=== PATIENT | male | born 1970 | race Caucasian/White ===

== ENCOUNTER → 2016-10-26 | Outpatient (CLI) | payer BC ==
--- NOTE | 2016-10-26 22:21 | MR ---
EXAMINATION TYPE: MR liver wo/w con DATE OF EXAM: 10/26/2016 7:36 AM COMPARISON: Outside [facility] MRI 04/12/2016. HISTORY: 46-year-old male status post low anterior resection for colonic adenocarcinoma, stage 4 Technique: Multiplanar, multisequence images of the abdomen were obtained before and after administra tion of 20 mL intravenous MultiHance gadolinium contrast. FINDINGS: The heart is normal size. Susceptibility artifact at the GE junction suggestive of prior hiatal hernia repair. Small 3.4 cm fat -containing left-sided Bochdalek hernia. Lobulated 2.7 cm hemangioma redemonstrated along the central right hepatic lobe. A number of tiny sub centimeter cysts are again seen throughout the liver. There is some perfusion variation seen along the anterior falciform ligament. Arterial enhancing, peripherally located lesions which follow the blood pool likely represent flash f illing hemangiomas or areas of vascular shunting on series 701 as follows: - 2 cm lobulated lesion segment 5/6 peripheral right liver lobe, image 176. - 2 adjacent lesions measuring up to 1.4 cm inferior right liver lobe, image 181 and 206. - Along the gallbladder fossa, image 316. - Peripheral segment 2 left hepatic lobe image 461. Suspicious hypovascular lesions that show mild T2 hyperintensity and slight rim enhancement on series 701 are as follows: - 7 mm segment 4A/8 image 430 versus 1.6 cm, previously. - 1.2 cm segment 7 image 405 versus 2.5 cm, previously. - 9 mm peripheral segment 5/6 image 217 versus 2.1 cm, previously. - Approximately five additional smaller lesions seen on the outside MRI of 04/12/2016 are no longer a pparent. The bile duct is mildly dilated at 8 mm but shows normal distal tapering and is within normal limits postcholecystectomy status. Multiple bilateral renal cysts measuring up to 1.8 cm. There is also a hemorrhagic 1 cm cyst redemons trated within the right midpole. Symmetric uptake and excretion of contrast by both kidneys. The adrenal glands, spleen, and pancreas appear within normal limits. No upper abdominal lymphadenopathy or ascites fluid. There is moderate stool burden with mild scatte red colonic diverticulosis. There is minimal residual enhancement of the right lateral L4 lesion. The anterior L2 lesion shows n o significant enhancement. IMPRESSION: 1. The hepatic metastases show interval treatment response. The largest now measures 1.2 cm in segmen t 7 versus 2.5 cm, previously. The other 2 hypovascular lesions measure 9 mm and 7 mm (previously 2.1 cm and 1.6 cm, respectively). Other metastatic deposits are no longer seen. 2. The known right lateral L4 vertebral body lesion shows minimal residual enhancement. The anterior L2 lesion no longer shows any significant enhancement.
== END | disposition home or self-care (01) ==
LOC: RADMRIMAIN 06:48
PROVIDERS: ATTEND Family Medicine
DX: C18.9 Malignant neoplasm of colon, unspecified (principal); C78.7 Secondary malignant neoplasm of liver and intrahepatic bile duct; M89.9 Disorder of bone, unspecified
CPT/HCPCS: 74183; A9577

== ENCOUNTER → 2016-12-17 | Outpatient (CLI) | payer BC ==
--- NOTE | 2016-12-19 11:18 | PE ---
Nuclear medicine PET/CT HISTORY: Metastatic colon cancer, C 26.0 Patient received 14.3 mCi F-18 FDG intravenously. Delayed scanning performed from the skull base to t he mid thighs. Localization and attenuation correction CT scan was performed. Correlation to prior nuclear medicine PET/CT 05/28/2016, MR liver 10/26/2016 Neck and chest: There is no evident adenopathy. No suspicious hypermetabolic uptake. Emphysematous ch sabrina present within the lungs, no evident lung mass. Abdomen pelvis: No retroperitoneal adenopathy. No evident liver mass on this noncontrast exam. Calcif ication present at the lower pole of the left kidney measures approximately 8.5 mm and is nonobstruct boyd, calcification at the lower pole of the right kidney measures 4 to 5 mm and is unremarkable, no o bstruction. Postop changes are present in the upper abdomen. Postop change present at the rectosigmoi d junction. Right inguinal hernia contains fat. No evident adenopathy or suspicious hypermetabolic up take. Osseous structures are showing interval sclerotic change to the proximal humerus lesion on the left a s well as the sacrum. L4 lesion on the right shows some sclerosis as does the L2 lesion anteriorly, n o significant hypermetabolic uptake. IMPRESSION: No suspicious hypermetabolic uptake on the current exam.
== END | disposition home or self-care (01) ==
LOC: RADPETMAIN 09:46
PROVIDERS: ATTEND Family Medicine
DX: C26.0 Malignant neoplasm of intestinal tract, part unspecified (principal)
CPT/HCPCS: 78815; A9552

== ENCOUNTER 2017-01-04 06:15 | Day surgery (SDC) | payer BC ==
[2017-01-02 10:57] VITALS: BMI 28.2
[~2017-01-04 06:15] MED LIST: DEXAMETHASONE SOD PHOSPHATE 10 MG/ML 1 ML VIAL IV ONE; HEPARIN SODIUM,PORCINE 5,000 UNIT/ML 1 ML VIAL SQ ONE; HYDROmorphone 1 MG/ML 1 ML SYRINGE IVP PRN; MIDAZOLAM 2 MG/2 ML VIAL IV PRN; ONDANSETRON 4 MG/2 ML VIAL IVP ONE; SCOPOLAMINE 1.5MG/72HR PATCH TRANSDERM ONE; ceFAZolin 2 GM in SODIUM CHLORIDE 0.9% 100 ML IVPB ONE
[2017-01-04] MEDS: LACTATED RINGERS 1,000 ML IV SCH ×2 (06:49→06:50)
[2017-01-04] MEDS ORDERED: LIDOCAINE 1% 20 ML VIAL (10MG/ML) FOR IV START INTRADERMA ONE ×2 (06:50)
[2017-01-04 07:13] LABS: Glucose,Whole Blood 105 mg/dL (75-99)
--- NOTE | 2017-01-04 07:57 | P.GSHP ---
History of Present Illness H&P Date: 01/04/17 Chief Complaint: Right inguinal hernia This a 46-year-old male who presents today for laparoscopic robotic system repair of right inguinal hernia. Patient has had a right inguinal hernia for several months. The hernia has increased in size. Past Medical History Past Medical History: Cancer, GI Bleed Additional Past Medical History / Comment(s): Hx. kidney stones, colon cancer History of Any Multi-Drug Resistant Organisms: None Reported Past Surgical History: Bowel Resection, Cholecystectomy, Tonsillectomy Additional Past Surgical History / Comment(s): 03/03/16 colonoscopy, 03/04/16 low anterior resection and laparoscopic liver biopsy, Other surgical hx: hiatal hernia repair, lithotripsy R renal calculus, colonoscopy in past/EGD. PORT A CATH 04/01/16 Past Anesthesia/Blood Transfusion Reactions: No Reported Reaction Smoking Status: Former smoker - Past Family History Father Family Medical History: No Reported History Additional Family Medical History / Comment(s): Father is healthy and in his 70' s. Mother Family Medical History: Hypertension, Renal Disease Additional Family Medical History / Comment(s): Mother has had kidney stones. She is in her 70's. Medications and Allergies Home Medications Medication Instructions Recorded Confirmed Type Aspirin EC [Ecotrin Low Dose] 81 mg PO DAILY 01/02/17 01/04/17 History Allergies Allergy/AdvReac Type Severity Reaction Status Date / Time No Known Allergies Allergy Verified 01/04/17 06:27 Surgical - Exam Vital Signs Temp Pulse Resp BP Pulse Ox 98.7 F 88 16 111/75 95 01/04/17 06:20 01/04/17 06:20 01/04/17 06:20 01/04/17 06:20 01/04/17 06:20 - General well developed, no distress - Eyes PERRL - ENT normal pinna - Neck no masses - Respiratory normal expansion - Cardiovascular Rhythm: regular - Abdomen Abdomen: soft, non tender Hernia: inguinal (Reducible right inguinal hernia) Results - Labs Abnormal Lab Results - Last 24 Hours (Table) 01/04/17 Range/Units 06:36 POC Glucose (mg/dL) 105 H (75-99) mg/dL Assessment and Plan Plan: Right inguinal hernia. We'll perform laparoscopic robotic assistance repair.
[2017-01-04] MEDS ORDERED: fentaNYL (PF) 50 MCG/ML 2 ML AMP ONE (08:00)
[2017-01-04] MEDS ORDERED: KETOROLAC 30 MG/ML 1 ML VIAL ONE (08:00)
[2017-01-04] MEDS ORDERED: ESMOLOL 100 MG/10 ML VIAL ONE (08:00)
[2017-01-04] MEDS ORDERED: LIDOCAINE 1% INJ 10MG/ML (20 ML MDV) ONE (08:00)
[2017-01-04] MEDS ORDERED: MIDAZOLAM 2 MG/2 ML VIAL ONE (08:00)
[2017-01-04] MEDS ORDERED: SUCCINYLCHOLINE CHLORIDE 100 MG/5 ML SYR IV ONE (08:00)
[2017-01-04] MEDS ORDERED: PROPOFOL 10 MG/ML 20 ML VIAL IV ONE (08:00)
[2017-01-04] MEDS ORDERED: NEOSTIGMINE 1 MG/ML 10 ML VIAL ONE (08:00)
[2017-01-04] MEDS ORDERED: GLYCOPYRROLATE 0.2 MG/ML 2 ML VIAL ONE (08:00)
[2017-01-04] MEDS ORDERED: ROCURONIUM BROMIDE 10 MG/ML 10 ML VIAL IV ONE (08:00)
[2017-01-04] MEDS ORDERED: LIDOCAINE 1%-EPI 1:100,000 20 ML VIAL SQ ONE (08:38)
--- NOTE | 2017-01-04 09:17 | P.OP ---
Date of Procedure: 01/04/17 Preoperative Diagnosis: Right renal hernia Postoperative Diagnosis: Bilateral inguinal hernia Procedure(s) Performed: Laparoscopic robotic-assisted repair of bilateral inguinal hernias Implants: Anesthesia: CARLIE Surgeon: Vinicius Leong Estimated Blood Loss (ml): 5 Pathology: none sent Condition: stable Disposition: PACU Indications for Procedure: Operative Findings: Description of Procedure: The patient's placed on the operating table in the supine position. The patient received general anesthesia. The patient's abdomen was prepped and draped in usual sterile fashion. The skin was anesthetized 1% local Xylocaine at the incision sites. Using an 11 blade a skin incision was made at the umbilicus. The fascia was grasped with a Linnette and then the peritoneal cavity was entered with the Veress needle. Position of the Veress needle was confirmed with a positive drop test. After adequate insufflation a 5 mm trocar was placed into the peritoneal cavity. The Laparoscope was placed the peritoneal cavity. And a robotic 8 mm trocar was placed in the right lateral position and then another 8 mm robotic trochars placed in the left lateral position. The original 5 mm trocar was exchanged for a 12 mm trocar. The patient was placed in reverse Trendelenburg and then the patient was docked to the robot. Next the peritoneum over top of the hernia was incised and then using blunt and sharp dissection and electrocautery the hernia sac was dissected free from the floor of the inguinal canal. The hernia sac was completely reduced into the peritoneal cavity. And then using the Pro oracle erp architect mesh the hernia was repaired. The peritoneum was then sutured with 20V lock suture. Next the left inguinal hernia was repaired in identical fashion. The patient was then undocked the robot. The needle was withdrawn from the peritoneal cavity. The umbilical trocar site was closed with 0 Ethibond suture. The skin was closed interrupted 3-0 Monocryl suture. Dermabond dressing was applied. Patient was sent to recovery in stable condition.
[2017-01-04] MEDS ORDERED: LACTATED RINGERS 1,000 ML IV ONE (09:44)
[2017-01-04 09:48] VITALS: TEMP 97.5
[2017-01-04 10:32] VITALS: RESP 16
[2017-01-04 11:21] VITALS: BP 128/84; PULSE 96
== END 2017-01-04 11:58 | disposition home or self-care (01) ==
LOC: OR 06:15
PROVIDERS: ATTEND Surgery
DX: K40.20 Bilateral inguinal hernia, without obstruction or gangrene, not specified as recurrent (principal); Z87.891 Personal history of nicotine dependence
CPT/HCPCS: 49650; C1781; J2250; J1644; J1100; J2710; J0690; J2405; J2001; J3010; J1885; J1170; J0330; J2704

== ENCOUNTER → 2017-07-15 | Outpatient (CLI) | payer BC ==
--- NOTE | 2017-07-17 17:51 | PE ---
EXAMINATION TYPE: PET CT fusion skull to thigh DATE OF EXAM: 07/15/2017 CLINICAL HISTORY: 46-year-old male restaging colorectal cancer. TECHNIQUE: Following the intravenous administration of 13.45 mCi of F-18 FDG, whole body images are performed from the skull base to the midthigh. Images are reviewed on the computer in the coronal, axial, and sagittal planes. Reconstructed rotating images are created on independent workstation and reviewed on the computer. A localization and attenuation correction CT is performed in conjunction with the PET scan. Glucose level: 99 mg/dL CTDI: 4.89 mGy DLP: 550.65 mGy-cm COMPARISON: 04/08/2017. FINDINGS: PET: Focus of increased activity at the right scapular neck, max SUV 7.4 versus 5.4, previously. Additional focus of increased activity within the anterior L2 vertebral body, max SUV 9.7 versus 2.8, previously. Increased uptake right inferior ischial ramus, max SUV 4.3 versus 4.0, previously. These areas of increased FDG uptake are associated with sclerosis on the correlative CT. Abnormal sclerosis within the mid sacrum, left humeral head, and right L4 vertebral body show no disc rete uptake and remain unchanged from prior exam. Small focus of uptake within the right hemipelvis is located along the course of the distal right ure ter compatible with excreted FDG. Otherwise, physiologic FDG uptake within the neck, chest, abdomen, and pelvis. ATTENUATION CORRECTION CT: Follow-up or mucosal retention cyst within the sphenoid sinus. Mastoid air cells are clear. No cervic al lymphadenopathy. Right-sided anterior chest wall injection port with catheter tip at the mid to lower SVC. Heart normal size without pericardial effusion. Aorta normal caliber with conventional arterial vesse l branching anatomy. No thoracic lymphadenopathy. Small fat-containing left-sided Bochdalek hernia. S ome strandy right middle lobe atelectasis. Mild diffuse bronchial wall thickening could represent bro nchitis or asthma. Nonspecific air cyst at the right base. No consolidation or pleural effusion. Left renal calculus measuring 6 mm. Cholecystectomy clips. Suggesting some surgical material below th e GE junction. No dilated small bowel, free fluid, or free air. No mesenteric or retroperitoneal lymp hadenopathy. Normal appendix. Post surgical changes of rectosigmoid resection and reanastomosis. Pelv ic phleboliths. No abnormal collection seen in the pelvis. Tiny periumbilical hernia. Bones: Sclerotic foci as mentioned above. IMPRESSION: 1. Abnormal uptake remains at the right scapular neck, L2 vertebral body, and right inferior ischial ramus. Overall degree of hypermetabolism has increased suggesting disease progression at these limite d sites. 2. Redemonstrated nonmetabolic sclerotic foci in the left humeral head, right L4, and mid sacrum sugg esting sites of previously treated osseous metastatic disease. 3. Prior distal colon resection with rectosigmoid anastomosis. 4. Incidental: 6 mm nonobstructive left renal calculus.
== END | disposition home or self-care (01) ==
LOC: RADPETMAIN 07:51
PROVIDERS: ATTEND Family Medicine
DX: C18.9 Malignant neoplasm of colon, unspecified (principal); N20.0 Calculus of kidney; Z90.49 Acquired absence of other specified parts of digestive tract
CPT/HCPCS: 78815; A9552

== ENCOUNTER → 2017-10-06 | Outpatient (CLI) | payer BC | END | disposition home or self-care (01) | LOC: RADMRIMAIN 14:09 | PROVIDERS: ATTEND Family Medicine | DX: Z53.9 Procedure and treatment not carried out, unspecified reason (principal) ==

== ENCOUNTER → 2017-11-23 | Outpatient (CLI) | payer BC ==
--- NOTE | 2017-11-23 15:51 | NM ---
EXAMINATION TYPE: NM bone scan whole body DATE OF EXAM: 11/23/2017 COMPARISON: PET/CT 07/15/2017 the prior bone scan 04/07/2016 HISTORY: Colon cancer, bone metastasis Delayed whole-body scanning was performed following the injection of 25.1 mCi Tc 99m MDP. Images acq uired 3.75 hours post injection. FINDINGS: In comparison to prior bone scan there is increased uptake at the level of the right and left shoulde r, pubic ramus ischial tuberosity on the right, pubic ramus and medial acetabulum on the left, thorac ic vertebral body approximately T9, lumbar vertebral body approximately L2 and sacrum. Sacral activit y is improved in the interval. Uptake in the left hemipelvis may be contaminant, there is no uptake s een on prior PET/CT at this level. Right pelvic uptake appears more intense than prior PET/CT however , thoracic uptake not definitely seen on prior nuclear medicine PET/CT. Focus of rib uptake also pres ent on the left at approximately the level also not seen on prior PET/CT IMPRESSION: Metastatic disease as described.
== END | disposition home or self-care (01) ==
LOC: RADNMMAIN 10:18
PROVIDERS: ATTEND Internal Medicine Hematology & Oncology
DX: C18.7 Malignant neoplasm of sigmoid colon (principal); C79.51 Secondary malignant neoplasm of bone
CPT/HCPCS: 78306; A9503

== ENCOUNTER → 2017-12-23 | Outpatient (CLI) | payer BC ==
--- NOTE | 2017-12-24 12:30 | PE ---
Nuclear medicine PET/CT HISTORY: Colon carcinoma, subsequent Patient received 12.5 mCi F-18 FDG intravenously in delayed scanning was performed from the skull bas e to the mid thighs. Localization and attenuation correction CT scan was also performed. Correlation to prior nuclear medicine PET/CT 07/15/2017 Neck and chest: Port-A-Cath is present in the right pectoral region via IJ approach the distal tip of the catheter is within the superior vena cava. Coronary artery calcifications are present. There is no mediastinal, axillary, or hilar adenopathy. The lungs show no mass, no suspicious hypermetabolic u ptake, pleural effusion. Abdomen pelvis: There is no suspicious hypermetabolic uptake. Patient is post cholecystectomy. Liver shows no mass. Bilateral renal calculi noted incidentally. No retroperitoneal adenopathy. Umbilical h ernia contains fat. Osseous structures: There is a lytic lesion present within the right scapula towards the glenoid with associated hypermetabolic uptake, SUV is 5.3. T9 vertebral body also shows a focus of increased radi o pharmaceutical uptake, SUV is 8.8 posteriorly on the left, proximal left humerus shows a mild area of uptake laterally measuring 3. SUV. Right ischium shows sclerotic focus associated hypermetabolic u ptake, SUV 5, there is periosteal reaction. Sacral focus seen on previous exam, lumbar lytic foci do not show associated hypermetabolic uptake. IMPRESSION: There is improvement in the intensity of uptake as described within the skeletal system. Findings compatible with positive treatment response.
== END | disposition home or self-care (01) ==
LOC: RADPETMAIN 07:37
PROVIDERS: ATTEND Family Medicine
DX: C18.9 Malignant neoplasm of colon, unspecified (principal)
CPT/HCPCS: 78815; A9552

== ENCOUNTER 2018-05-23 06:37 | Day surgery (SDC) | payer BC ==
[2018-05-22 11:14] VITALS: BMI 26.3
[~2018-05-23 06:37] MED LIST changes: -DEXAMETHASONE SOD PHOSPHATE 10 MG/ML 1 ML VIAL IV ONE; -HEPARIN SODIUM,PORCINE 5,000 UNIT/ML 1 ML VIAL SQ ONE; -HYDROmorphone 1 MG/ML 1 ML SYRINGE IVP PRN; +LACTATED RINGERS 1,000 ML IV SCH; -MIDAZOLAM 2 MG/2 ML VIAL IV PRN; -ONDANSETRON 4 MG/2 ML VIAL IVP ONE; -SCOPOLAMINE 1.5MG/72HR PATCH TRANSDERM ONE; -ceFAZolin 2 GM in SODIUM CHLORIDE 0.9% 100 ML IVPB ONE
[2018-05-23 07:15] VITALS: TEMP 97.8
[2018-05-23] MEDS ORDERED: PROPOFOL 10 MG/ML 20 ML VIAL IV ONE (07:44)
[2018-05-23] MEDS ORDERED: ONDANSETRON 4 MG/2 ML VIAL ONE (07:44)
[2018-05-23] MEDS ORDERED: LIDOCAINE 1% INJ 10MG/ML (20 ML MDV) ONE (07:44)
[2018-05-23] MEDS ORDERED: MIDAZOLAM 2 MG/2 ML VIAL ONE (07:44)
[2018-05-23] MEDS ORDERED: fentaNYL (PF) 50 MCG/ML 2 ML AMP ONE (07:44)
[2018-05-23] MEDS ORDERED: GLUCAGON 1 MG/ML VIAL ONE (07:44)
--- NOTE | 2018-05-23 07:58 | P.GSHP ---
History of Present Illness H&P Date: 05/23/18 Chief Complaint: History of colon cancer Is a 47-year-old male who presents today for colonoscopy. Patient history of colon cancer. Patient states he has had some difficulty asked him bowel movements. He feels he has to push and strain more. He's had a recent PET scan which shows some activity in the rectosigmoid area. Past Medical History Past Medical History: Cancer, GI Bleed Additional Past Medical History / Comment(s): Colon CA / Radiation Hx. kidney stones, History of Any Multi-Drug Resistant Organisms: None Reported Past Surgical History: Bowel Resection, Cholecystectomy Additional Past Surgical History / Comment(s): low anterior resection and laparoscopic liver biopsy, Other surgical hx: hiatal hernia repair, lithotripsy R renal calculus, colonoscopy in past/EGD. Past Anesthesia/Blood Transfusion Reactions: No Reported Reaction Smoking Status: Former smoker - Past Family History Father Family Medical History: No Reported History Additional Family Medical History / Comment(s): Father is healthy and in his 70' s. Mother Family Medical History: Hypertension, Renal Disease Additional Family Medical History / Comment(s): Mother has had kidney stones. She is in her 70's. Medications and Allergies Home Medications Medication Instructions Recorded Confirmed Type Fish Oil/Dha/Epa [Fish Oil 1,200 1 each PO DAILY 05/22/18 05/22/18 History mg Fish Oil] Multivitamins, Thera [Multivitamin 1 tab PO DAILY 05/22/18 05/22/18 History (formulary)] oxyCODONE ER [OxyCONTIN] 20 mg PO Q12HR 05/22/18 05/23/18 History Allergies Allergy/AdvReac Type Severity Reaction Status Date / Time No Known Allergies Allergy Verified 05/22/18 11:07 Surgical - Exam Vital Signs Temp Pulse Resp BP Pulse Ox 97.8 F 79 18 125/81 96 05/23/18 07:12 05/23/18 07:12 05/23/18 07:12 05/23/18 07:12 05/23/18 07:12 - General well developed, no distress - Eyes PERRL - ENT normal pinna - Neck no masses - Respiratory normal expansion - Cardiovascular Rhythm: regular - Abdomen Abdomen: soft, non tender - Rectum Rectum: normal sphincter tone Assessment and Plan Assessment: History of colon cancer, we'll perform colonoscopy.
--- NOTE | 2018-05-23 08:18 | P.OP ---
Date of Procedure: 05/23/18 Preoperative Diagnosis: History of colon cancer Postoperative Diagnosis: Mild diverticulosis No evidence of colon cancer recurrence No evidence of anastomotic stricture Procedure(s) Performed: Colonoscopy Anesthesia: MAC Surgeon: Vinicius Leong Pathology: none sent Condition: stable Disposition: PACU Description of Procedure: The patient's placed on the endoscopy table in the lateral position. He received IV sedation. Digital rectal exam was performed which revealed no abnormalities. The flexible colonoscope was then placed patient anus passed throughout the entire colon. The ileocecal valve was visualized. There was evidence of small bowel prolapsing through the ileocecal valve. The scope was then withdrawn. The cecum, ascending and transverse colon appeared normal. In the descending colon there was a few scattered diverticula. There is no evidence of diverticulitis. The scope was then brought back and the colorectal rectal anastomosis was visualized. There is no evidence of inflammation or scarring at the anastomosis. There is no evidence of any recurrent tumor. Scope was then brought back the rectum and this appeared normal. Scope was withdrawn for patient.
[2018-05-23 08:39] VITALS: BP 120/81; PULSE 77; RESP 18
== END 2018-05-23 09:03 | disposition home or self-care (01) ==
LOC: ORWHC2ENDO 06:37
PROVIDERS: ATTEND Surgery
DX: K57.90 Diverticulosis of intestine, part unspecified, without perforation or abscess without bleeding (principal); Z85.038 Personal history of other malignant neoplasm of large intestine; K57.30 Diverticulosis of large intestine without perforation or abscess without bleeding; Z92.3 Personal history of irradiation; Z87.442 Personal history of urinary calculi; Z98.0 Intestinal bypass and anastomosis status; Z87.891 Personal history of nicotine dependence; Z79.891 Long term (current) use of opiate analgesic
CPT/HCPCS: 45378; J2250; J1610; J2405; J2001; J3010; J2704

== ENCOUNTER 2018-06-14 06:31 | Day surgery (SDC) | payer BC ==
[2018-06-13 13:44] VITALS: BMI 26.3
[~2018-06-14 06:31] MED LIST changes: +HEPARIN SODIUM,PORCINE 5,000 UNIT/ML 1 ML VIAL SQ ONE; -LACTATED RINGERS 1,000 ML IV SCH; +ceFAZolin IN SWFI 2 GM/20 ML SYRINGE IVP ONE
[2018-06-14 07:09] VITALS: TEMP 97.6
[2018-06-14] MEDS ORDERED: LACTATED RINGERS 1,000 ML IV ONE (07:09)
[2018-06-14] MEDS ORDERED: LIDOCAINE 1% 20 ML VIAL (10MG/ML) FOR IV START INTRADERMA ONE (07:09)
[2018-06-14] MEDS ORDERED: DEXAMETHASONE SOD PHOS (MDV) 100 MG/10 ML VIAL IV ONE (07:10)
[2018-06-14] MEDS ORDERED: ONDANSETRON 4 MG/2 ML VIAL IVP ONE (07:10)
[2018-06-14] MEDS ORDERED: MIDAZOLAM 2 MG/2 ML VIAL IV ONE (07:21)
[2018-06-14] MEDS ORDERED: LIDOCAINE 1%-EPI 1:100,000 30 ML VIAL SQ ONE ×2 (07:30)
--- NOTE | 2018-06-14 07:37 | P.GSHP ---
History of Present Illness H&P Date: 06/14/18 Chief Complaint: Port-A-Cath infection This is a 47-year-old male with a history of colon cancer. Patient developed a Port-A-Cath infection. He presents today for removal of Port-A-Cath. Past Medical History Past Medical History: Cancer, GI Bleed Additional Past Medical History / Comment(s): Colon CA / Radiation Hx. kidney stones, History of Any Multi-Drug Resistant Organisms: None Reported Past Surgical History: Bowel Resection, Cholecystectomy Additional Past Surgical History / Comment(s): low anterior resection and laparoscopic liver biopsy, Other surgical hx: hiatal hernia repair, lithotripsy R renal calculus, colonoscopy in past/EGD. Past Anesthesia/Blood Transfusion Reactions: No Reported Reaction Smoking Status: Former smoker - Past Family History Father Family Medical History: No Reported History Additional Family Medical History / Comment(s): Father is healthy and in his 70' s. Mother Family Medical History: Hypertension, Renal Disease Additional Family Medical History / Comment(s): Mother has had kidney stones. She is in her 70's. Medications and Allergies Home Medications Medication Instructions Recorded Confirmed Type Fish Oil/Dha/Epa [Fish Oil 1,200 1 each PO DAILY 05/22/18 06/14/18 History mg Fish Oil] Multivitamins, Thera [Multivitamin 1 tab PO DAILY 05/22/18 06/14/18 History (formulary)] oxyCODONE ER [OxyCONTIN] 20 mg PO Q12HR 05/22/18 06/14/18 History Allergies Allergy/AdvReac Type Severity Reaction Status Date / Time No Known Allergies Allergy Verified 06/14/18 06:52 Surgical - Exam Vital Signs Temp Pulse Resp BP Pulse Ox 97.6 F 68 18 130/70 95 06/14/18 07:07 06/14/18 07:07 06/14/18 07:07 06/14/18 07:07 06/14/18 07:07 - General well developed, well nourished, no distress - Eyes PERRL - ENT normal pinna - Neck no masses - Respiratory Chest wall shows evidence of cellulitis around right subclavian Port-A-Cath normal expansion - Cardiovascular Rhythm: regular - Abdomen Abdomen: soft, non tender Assessment and Plan Assessment: Port-A-Cath infection. We'll perform removal of Port-A-Cath
[2018-06-14] MEDS ORDERED: PROPOFOL 10 MG/ML 20 ML VIAL IV ONE (07:42)
[2018-06-14] MEDS ORDERED: fentaNYL (PF) 50 MCG/ML 2 ML AMP ONE (07:42)
[2018-06-14] MEDS ORDERED: ceFAZolin IN SWFI 2 GM/20 ML SYRINGE IVP ONE (07:59)
--- NOTE | 2018-06-14 08:24 | P.OP ---
Date of Procedure: 06/14/18 Preoperative Diagnosis: Metastatic colon cancer Infected Port-A-Cath Postoperative Diagnosis: Metastatic colon cancer Infected Port-A-Cath Procedure(s) Performed: Removal of Port-A-Cath Anesthesia: MAC Surgeon: Vinicius Leong Pathology: other (Wound culture) Condition: stable Disposition: PACU Description of Procedure: The patient's placed on the endoscopy table in the lateral position. He received IV sedation. His right chest wall was prepped and draped in usual sterile fashion. Skin was anesthetized 1% local Xylocaine. A skin incision was made with a 15 blade and there was purulent fluid encountered. This was cultured. The Port-A-Cath was then bluntly dissected free from the chest wall. The catheter tip was cut and sent to pathology for culture. The wound was inspected for hemostasis. The wound was packed with iodoform gauze. Patient top procedure well and was sent to recovery room stable condition.
[2018-06-14] MEDS ORDERED: oxyCODONE-APAP 10-325MG 1 EACH TAB PO PRN (08:35)
[2018-06-14] MEDS ORDERED: oxyCODONE-APAP 5-325MG 1 EACH TAB PO ONE (08:38)
[2018-06-14 08:40] VITALS: BP 114/70; PULSE 75; RESP 18
== END 2018-06-14 08:51 | disposition home or self-care (01) ==
LOC: OR 06:31
PROVIDERS: ATTEND Surgery
DX: T80.212A Local infection due to central venous catheter, initial encounter (principal); C18.9 Malignant neoplasm of colon, unspecified; Z87.442 Personal history of urinary calculi; Z90.49 Acquired absence of other specified parts of digestive tract; Z87.891 Personal history of nicotine dependence; Z79.891 Long term (current) use of opiate analgesic
CPT/HCPCS: 87070; 87205; 87075; 87077; 87186; 36590; J2250; J1644; J2405; J3010; J1100; J2704; J0690

== ENCOUNTER 2018-06-15 08:10 | Day surgery (SDC) | payer BC ==
[2018-06-14 11:53] VITALS: BMI 26.3
[2018-06-15 08:38] VITALS: RESP 16; TEMP 97.7
[2018-06-15] MEDS ORDERED: LIDOCAINE 1% INJ 10MG/ML (20 ML MDV) ONE (09:15)
[2018-06-15] MEDS ORDERED: LIDOCAINE 1% INJ 10MG/ML (20 ML MDV) SQ ONE (09:27)
[2018-06-15 10:11] VITALS: BP 134/90; PULSE 72
--- NOTE | 2018-07-16 14:27 | IR ---
PICC LINE PLACEMENT: HISTORY: Infection requiring long-term antibiotic therapy PROCEDURE: Ultrasound and fluoroscopic guidance of PICC line placement. COMPLICATIONS: None ANESTHESIA: 1. 1% Lidocaine locally. FINDINGS/TECHNIQUE: The procedure was explained to the patient. The risks, complications, benefits and alternatives were discussed and any questions were answered. Informed consent was obtained. The patient was placed supine on the fluoroscopic table and prepped and draped in the usual sterile fash ion. Utilizing a 21 gauge needle and sonographic and fluoroscopic guidance, access in the right bas ilic vein was achieved and there is placement of a 0.018 guidewire. The vein is patent. A 4-F sheat h was placed over the guidewire. The guidewire and dilator were removed and a 4-F. PICC line was zena zenia through the sheath with the tip at the level of the SVC. The sheath was removed, the catheter wa s flushed and sutured into position. The patient was stable throughout the procedure and remained st able upon discharge from the Department of Radiology. The vein puncture was patent under ultrasound. A ledesma scale image was obtained to document patency of the vein punctured. All elements of the maximal barrier technique were utilized. FLUOROSCOPY TIME: 0.3 minutes and one image submitted IMPRESSION: Successful PICC line placement under ultrasound and fluoroscopic guidance.
== END 2018-06-15 10:07 | disposition home or self-care (01) ==
LOC: CATHCVL 08:10
PROVIDERS: ATTEND Radiology Diagnostic Radiology
DX: C18.7 Malignant neoplasm of sigmoid colon (principal); I87.2 Venous insufficiency (chronic) (peripheral); C78.7 Secondary malignant neoplasm of liver and intrahepatic bile duct; C79.51 Secondary malignant neoplasm of bone; G89.3 Neoplasm related pain (acute) (chronic); Z92.21 Personal history of antineoplastic chemotherapy; Z98.0 Intestinal bypass and anastomosis status; Z86.010 Personal history of colon polyps; Z87.891 Personal history of nicotine dependence; Z80.0 Family history of malignant neoplasm of digestive organs; Z79.899 Other long term (current) drug therapy
CPT/HCPCS: 36569; 76937; 77001; C1751; C1769; J2001

== ENCOUNTER 2018-07-20 06:34 | Day surgery (SDC) | payer BC ==
[~2018-07-20 06:34] MED LIST changes: +Pre Op ABX Message 1 EACH MISC MISCELLANE ONE; -ceFAZolin IN SWFI 2 GM/20 ML SYRINGE IVP ONE
[2018-07-20] MEDS ORDERED: LACTATED RINGERS 1,000 ML IV ONE (06:55)
[2018-07-20 06:59] VITALS: RESP 16; TEMP 97.9
[2018-07-20] MEDS ORDERED: ONDANSETRON 4 MG/2 ML VIAL IVP ONE ×2 (07:08→09:17)
[2018-07-20] MEDS ORDERED: DEXAMETHASONE SOD PHOSPHATE 10 MG/ML 1 ML VIAL IV ONE ×2 (07:09→09:17)
--- NOTE | 2018-07-20 07:49 | P.GSHP ---
History of Present Illness H&P Date: 07/20/18 Chief Complaint: History of colon cancer This a 48-year-old male who presents today for Port-A-Cath placement. Patient has a history of colon cancer. He had a previously placed port which was removed due to infection several months ago. Past Medical History Past Medical History: Cancer, GI Bleed Additional Past Medical History / Comment(s): Colon CA / Radiation Hx. kidney stones, History of Any Multi-Drug Resistant Organisms: None Reported Past Surgical History: Bowel Resection, Cholecystectomy Additional Past Surgical History / Comment(s): low anterior resection and laparoscopic liver biopsy, Other surgical hx: hiatal hernia repair, lithotripsy R renal calculus, colonoscopy in past/EGD, port-a-cath removed 06-14 Past Anesthesia/Blood Transfusion Reactions: No Reported Reaction Smoking Status: Former smoker - Past Family History Father Family Medical History: No Reported History Additional Family Medical History / Comment(s): Father is healthy and in his 70' s. Mother Family Medical History: Hypertension, Renal Disease Additional Family Medical History / Comment(s): Mother has had kidney stones. She is in her 70's. Medications and Allergies Home Medications Medication Instructions Recorded Confirmed Type Fish Oil/Dha/Epa [Fish Oil 1,200 1 each PO DAILY 05/22/18 07/20/18 History mg Fish Oil] Multivitamins, Thera [Multivitamin 1 tab PO DAILY 05/22/18 07/20/18 History (formulary)] oxyCODONE ER [OxyCONTIN] 20 mg PO Q12HR 05/22/18 07/20/18 History Aspirin 81 mg PO DAILY 06/15/18 07/20/18 History Allergies Allergy/AdvReac Type Severity Reaction Status Date / Time No Known Allergies Allergy Verified 07/20/18 06:43 Surgical - Exam Vital Signs Temp Pulse Resp BP Pulse Ox 97.9 F 75 16 132/76 96 07/20/18 06:58 07/20/18 06:58 07/20/18 06:58 07/20/18 06:58 07/20/18 06:58 - General well developed, well nourished, no distress - Eyes PERRL - ENT normal pinna - Neck no masses - Respiratory normal expansion - Cardiovascular Rhythm: regular - Abdomen Abdomen: soft, non tender Assessment and Plan Assessment: History of Port-A-Cath infection. We'll perform placement of Port-A-Cath.
[2018-07-20] MEDS ORDERED: PROPOFOL 10 MG/ML 20 ML VIAL IV ONE (08:02)
[2018-07-20] MEDS ORDERED: GLYCOPYRROLATE 0.2 MG/ML 2 ML VIAL ONE (08:02)
[2018-07-20] MEDS ORDERED: KETAMINE 10 MG/ML 20 ML VIAL ONE (08:02)
[2018-07-20] MEDS ORDERED: MIDAZOLAM 2 MG/2 ML VIAL ONE (08:02)
[2018-07-20] MEDS ORDERED: fentaNYL (PF) 50 MCG/ML 2 ML AMP ONE (08:02)
[2018-07-20] MEDS ORDERED: BUPIVACAIN-EPI 0.25%-1:200,000 30 ML VIAL SQ ONE ×2 (08:30)
[2018-07-20] MEDS ORDERED: HEPARIN SODIUM,PORCINE 100 UNIT/ML 5 ML VIAL IV ONE (08:32)
[2018-07-20] MEDS ORDERED: IOPAMIDOL-370 50ML BTL MISCELLANE ONE (08:33)
[2018-07-20] MEDS ORDERED: SCOPOLAMINE 1.5MG/72HR PATCH TRANSDERM ONE (09:17)
[2018-07-20] MEDS ORDERED: MIDAZOLAM (PF) 2 MG/2 ML VIAL IV PRN (09:17)
[2018-07-20] MEDS ORDERED: LACTATED RINGERS 1,000 ML IV SCH (09:17)
[2018-07-20] MEDS ORDERED: HYDROmorphone 0.5 MG/0.5 ML SYRINGE IVP PRN (09:17)
[2018-07-20 09:47] VITALS: BP 141/90; PULSE 91
--- NOTE | 2018-07-20 09:55 | FL ---
Fluoroscopy HISTORY: Port-A-Cath insertion 30 seconds fluoroscopy time supplied to the referring clinician. 1 intraoperative C-arm images docum ent the procedure. See dictated report from general surgery.
--- NOTE | 2018-07-20 10:02 | P.OP ---
Date of Procedure: 07/20/18 Preoperative Diagnosis: Colon cancer Postoperative Diagnosis: Colon cancer Procedure(s) Performed: Insertion of right subclavian Mediport Anesthesia: MAC Surgeon: Vinicius Leong Estimated Blood Loss (ml): 10 Pathology: none sent Condition: stable Disposition: PACU Description of Procedure: The patient's placed on the operative table in the supine position. He received IV sedation. His chest garvin were prepped and draped usual sterile fashion. The patient a previous right-sided Port-A-Cath. His left chest wall was anesthetized. Using Seldinger technique the right subclavian vein was found. Multiple times made to feed the wire into the vein hours impossible. Multiple re-insertions into the subclavian vein was performed. However the wire cannot feed. At this point the patient's right chest wall was anesthetized. The right-sided vein was found to Seldinger technique. The wire was placed into the subclavian vein confirmed with fluoroscopy. The dilator sheath was placed over top the wire. And then the catheter was fed through the sheath. The catheter was positioned at the intracaval junction. The catheter was then cut to the Port-A-Cath. A subcutaneous pocket had been made. Port-A- Cath placed in subcutaneous pocket. The skin was closed interrupted 3-0 Monocryl suture. The port Flushed with Heparinized Saline. Patient Top She Will Was Sent to Recovery in Stable Condition. Chest X-Ray Was Performed.
--- NOTE | 2018-07-20 10:14 | XR ---
EXAMINATION TYPE: XR chest 1V portable DATE OF EXAM: 07/20/2018 COMPARISON: Prior chest x-ray 04/01/2016 HISTORY: Status post Port-A-Cath placement TECHNIQUE: Single frontal view of the chest is obtained. FINDINGS: Right-sided central venous catheter, Port-A-Cath is present, distal tip is at the cavoatri al junction. No pneumothorax or pleural effusion. IMPRESSION: No evident complication status post Port-A-Cath placement.
== END 2018-07-20 10:36 | disposition home or self-care (01) ==
LOC: OR 06:34
PROVIDERS: ATTEND Surgery
DX: C18.9 Malignant neoplasm of colon, unspecified (principal); Z79.82 Long term (current) use of aspirin; Z79.891 Long term (current) use of opiate analgesic; Z90.49 Acquired absence of other specified parts of digestive tract; Z92.21 Personal history of antineoplastic chemotherapy; Z92.3 Personal history of irradiation; Z87.442 Personal history of urinary calculi; Z87.891 Personal history of nicotine dependence
CPT/HCPCS: 36561; 77001; 71045; J2250; J1644; J1642; J1100; J2405; J3010; J2704; Q9967

== ENCOUNTER → 2018-08-29 | Outpatient (CLI) | payer BC ==
--- NOTE | 2018-08-29 16:37 | NM ---
EXAMINATION TYPE: NM bone scan whole body DATE OF EXAM: 08/29/2018 COMPARISON: Prior bone scan 11/23/2017 HISTORY: bone metastasis Delayed whole-body scanning was performed following the injection of 22.8 mCi Tc 99m MDP. Images acq uired 3 hours post injection. FINDINGS: Similar to prior exam, there is a focus of increased uptake at the proximal metaphyseal left humerus, sacrum. Uptake at the level of the coracoid on the right, costovertebral angle on the left at approx imately T9 and right ischium is decreased as compared to prior. There is no uptake present at the ant erior aspect of the fifth rib on the left and sixth rib on the right. Mild uptake present anteriorly, not seen definitively on prior exam. Focus of uptake present at the posterior left 10th rib was not seen on prior exam. Uptake seen in the left hemipelvis on previous exam is not seen definitively on t belinda's exam. Uptake along the lateral aspect of approximately the fifth rib on the left is less consp icuous than on prior. Question some mild uptake in the posterior calvarium on the right is not seen o n prior. Focus of uptake noted in the right wrist. No other significant interval change. IMPRESSION: There is some improvement in some of the lesions and there are new foci of uptake as described.
== END | disposition home or self-care (01) ==
LOC: RADNMMAIN 11:01
PROVIDERS: ATTEND Family Medicine
DX: C18.9 Malignant neoplasm of colon, unspecified (principal); C78.7 Secondary malignant neoplasm of liver and intrahepatic bile duct; C79.51 Secondary malignant neoplasm of bone
CPT/HCPCS: 78306; A9503

== ENCOUNTER → 2018-09-17 | Outpatient (CLI) | payer BC | END | disposition home or self-care (01) | LOC: LABWHC1 12:10 | PROVIDERS: ATTEND Internal Medicine Hematology & Oncology | DX: C18.7 Malignant neoplasm of sigmoid colon (principal); C78.7 Secondary malignant neoplasm of liver and intrahepatic bile duct; C79.51 Secondary malignant neoplasm of bone; G89.3 Neoplasm related pain (acute) (chronic) | CPT/HCPCS: 36415; 93005 ==

== ENCOUNTER → 2018-09-19 | Outpatient (CLI) | payer BC ==
--- NOTE | 2018-09-19 09:47 | XR ---
EXAMINATION TYPE: XR Hip Complete LT DATE OF EXAM: 09/19/2018 COMPARISON: NONE HISTORY: Pain TECHNIQUE: 2 views submitted FINDINGS: There is no evidence of erosive change or acute fracture. There is a sclerotic lesion involving the l eft femoral neck. Mild narrowing the joint space seen. Soft tissue ossification noted. Sclerosis arou nd left greater trochanter also noted. Faint increased density along the inferior pubic ramus and mark r the pubic symphysis. IMPRESSION: 1. Sclerotic lesion overlying the femoral head is compatible with the PET scan findings and suggestiv e of metastasis. Faint area of increased density involving the pubic ramus also suspicious for metast ases
--- NOTE | 2018-09-19 09:49 | XR ---
EXAMINATION TYPE: XR pelvis AP view DATE OF EXAM: 09/19/2018 COMPARISON: NONE HISTORY: Pain Findings: Sclerotic densities involving the left femoral neck and bilateral pubic rami are noted. There is also sclerotic density involving the proximal right femur. Hypertrophic and degenerative change of the sp ine. Nonspecific calcification pelvis. Mild concentric narrowing of the hip joints. IMPRESSION: 1. Sclerotic changes involving the pubic rami and bilateral femur corresponds to the PET scan abnorma lity correlate for history of metastasis or malignancy.
== END | disposition home or self-care (01) ==
LOC: RADXRMAIN 09:16
PROVIDERS: ATTEND Radiology Radiation Oncology
DX: C18.7 Malignant neoplasm of sigmoid colon (principal); C79.51 Secondary malignant neoplasm of bone; Z92.21 Personal history of antineoplastic chemotherapy; Z92.3 Personal history of irradiation; Z87.891 Personal history of nicotine dependence
CPT/HCPCS: 72170; 73502

== ENCOUNTER 2018-12-15 21:47 | Inpatient (IN) | payer BC ==
[2018-12-15] MEDS ORDERED: HYDROmorphone 1 MG/ML 1 ML SYRINGE IVP STA ×4 (22:02→23:14)
[2018-12-15] MEDS ORDERED: SODIUM CHLORIDE 0.9% 1,000 ML IV STA (22:02)
--- NOTE | 2018-12-15 22:25 | ED ---
General Adult HPI - General Chief complaint: Recheck/Abnormal Lab/Rx Stated complaint: pain Time Seen by Provider: 12/15/18 21:50 Source: EMS Mode of arrival: EMS Limitations: no limitations - History of Present Illness Initial comments: Dictation was produced using [employer] dictation software. please excuse any grammatical, word or spelling errors. Chief Complaint: 48-year-old male with past medical history of advanced colon cancer presents with total body pain, chest pain shortness of breath. History of Present Illness: Patient is 48-year-old male he was diagnosed with colon cancer back in 2016. Blood loss 3-4 months he's been having worsening cancer pain. Patient states he's been having really bad pain to his whole body most evident in his knees, hips and chest. Yesterday he was feeling fine and [place] This morning he woke up with really bad pain. He states that his pain is in the same locations however with more severity and intensity. Patient is on multiple pain medications including fentanyl patch, methadone and when necessary Dilaudid. Patient's oncologist Dr. Luque. He also has a pain specialist. Patient also notes that his chest pain is a little different. He also complains of some exertional shortness of breath. Patient does have a history of pleural effusions. Denies any history of DVTs or PEs. The ROS documented in this emergency department record has been reviewed and confirmed by me. Those systems with pertinent positive or negative responses have been documented in the HPI. All other systems are other negative and/or no ncontributory. PHYSICAL EXAM: General Impression: Alert and oriented x3, acute distress secondary to pain, cachectic 6 HEENT: Normocephalic atraumatic, extra-ocular movements intact, pupils equal and reactive to light bilaterally, mucous membranes moist. Cardiovascular: Heart regular rate and rhythm, S1&S2 audible, no murmurs, rubs or gallops Chest: Lungs clear to auscultation bilaterally Abdomen: Bowel sounds present, abdomen soft, non-tender, non-distended, no organomegaly Musculoskeletal: Pulses present and equal in all extremities, no peripheral edema, tenderness to palpation of all extremities, chest, abdomen, hips Motor: no focal deficits noted Neurological: CN II-XII grossly intact, no focal motor or sensory deficits noted Skin: Intact with no visualized rashes Psych: Normal affect and mood ED course: 48-year-old male presents with total body pain, different characteristic chest pain shortness of breath. Patient has history of advanced cancer with metastatic disease to multiple organs. Vital signs upon arrival shows tachycardia 110, 22 respiratory rate, rest vital signs within acceptable limits.Patient given total of 9 mg of Dilaudid. After the Dilaudid administration patient still complains of persistent pain. Patient given some dissociative ketamine dose with improvement of symptoms. Patient was relatively pain free for several minutes then he reports his pain is returning mildly. Patient given another dose of ketamine in the IV piggyback form. Patient ree valuated and of his pain appears to be well controlled. Laboratory evaluation obtained. Patient has stable CBC. Coag panel unremarkable. Metabolic panel shows elevated BUN/creatinine ratio significant for dehydration. Lactic acid is 3.9 which may be due to respiratory issues and dehydration. Rest of labs are CT angiogram of the chest was obtained showing no findings of PE or aortic dissection. There is patchy ground glass opacities concerning for infectious or inflammatory process. Is also progression of thoracic metastatic disease. Given patient's clinical presentation and believe his lactic acidosis is multifactorial including respiratory issues and dehydration. Patient given int ravenous fluids. Patient would benefit from inpatient admission with consultation to oncology, pain and pulmonology. Patient and family are understandable and agreeable to disposition. This point highly doubt any acute infectious process however pending blood cultures and urine cultures. EKG interpretation: Ventricular rate 106, sinus tachycardia,. 142, care is 86, QTC 4:30. No RI prolongation, no QTC prolongation, no ST or T-wave changes noted. Overall, this EKG is unremarkable - Related Data Home Medications Medication Instructions Recorded Confirmed DULoxetine HCL [Cymbalta] 60 mg PO DAILY 12/15/18 12/15/18 Dexamethasone [Decadron] 2 mg PO TID 12/15/18 12/15/18 Esomeprazole Magnesium [NexIUM] 40 mg PO DAILY 12/15/18 12/15/18 HYDROmorphone [Dilaudid] 1 - 2 tab PO Q3H PRN 12/15/18 12/15/18 Ibuprofen [Motrin] 800 mg PO TID PRN 12/15/18 12/15/18 Lubiprostone [Amitiza] 24 mcg PO BID 12/15/18 12/15/18 Methadone [Dolophine] 30 mg PO Q8H PRN 12/15/18 12/15/18 Morphine 20mg/5ml 80 mg PO Q4H PRN 12/15/18 12/15/18 Morphine Sulfate [Morphine Sulfate 30 mg PO Q4H PRN 12/15/18 12/15/18 ER] Naloxegol Oxalate [Movantik] 25 mg PO DAILY 12/15/18 12/15/18 Sennosides [Senokot] 8.6 mg PO Q12H PRN 12/15/18 12/15/18 fentaNYL 100MCG/HR PATCH 100 mcg PO Q72H 12/15/18 12/15/18 [Duragesic 100MCG/HR] oxyCODONE ER [OxyCONTIN] 15 mg PO Q4H PRN 12/15/18 12/15/18 Allergies Allergy/AdvReac Type Severity Reaction Status Date / Time No Known Allergies Allergy Verified 12/15/18 22:13 Review of Systems ROS Statement: Those systems with pertinent positive or pertinent negative responses have been documented in the HPI. ROS Other: All systems not noted in ROS Statement are negative. Past Medical History Past Medical History: Cancer, GI Bleed Additional Past Medical History / Comment(s): Colon CA / Radiation Hx. kidney stones, History of Any Multi-Drug Resistant Organisms: None Reported Past Surgical History: Bowel Resection, Cholecystectomy Additional Past Surgical History / Comment(s): low anterior resection and laparoscopic liver biopsy, Other surgical hx: hiatal hernia repair, lithotripsy R renal calculus, colonoscopy in past/EGD, port-a-cath removed 06-14-18 Past Anesthesia/Blood Transfusion Reactions: No Reported Reaction Past Psychological History: No Psychological Hx Reported Smoking Status: Former smoker - Past Family History Father Family Medical History: No Reported History Additional Family Medical History / Comment(s): Father is healthy and in his 70's. Mother Family Medical History: Hypertension, Renal Disease Additional Family Medical History / Comment(s): Mother has had kidney stones. She is in her 70's. General Exam Limitations: no limitations Course Vital Signs 12/15/18 12/15/18 12/15/18 21:56 22:05 23:10 Temperature 98.4 F Pulse Rate 110 H 98 Respiratory 20 22 20 Rate Blood Pressure 129/96 115/92 O2 Sat by Pulse 100 98 Oximetry 12/15/18 12/16/18 12/16/18 23:37 00:00 00:54 Temperature Pulse Rate 98 98 99 Respiratory 18 18 18 Rate Blood Pressure 116/86 137/100 118/84 O2 Sat by Pulse 99 98 96 Oximetry 12/16/18 01:08 Temperature Pulse Rate 92 Respiratory 18 Rate Blood Pressure 110/90 O2 Sat by Pulse 97 Oximetry Medical Decision Making - Lab Data Result diagrams: 12/15/18 22:17 12/15/18 22:12 Lab Results 12/15/18 12/15/18 12/15/18 Range/Units 22:12 22:12 22:12 WBC (3.8-10.6) k/uL RBC (4.30-5.90) m/uL Hgb (13.0-17.5) gm/dL Hct (39.0-53.0) % MCV (80.0-100.0) fL MCH (25.0-35.0) pg MCHC (31.0-37.0) g/dL RDW (11.5-15.5) % Plt Count (150-450) k/uL Neutrophils % (Manual) % Band Neutrophils % % Lymphocytes % (Manual) % Monocytes % (Manual) % Metamyelocytes % % Neutrophils # (Manual) (1.3-7.7) k/uL Lymphocytes # (Manual) (1.0-4.8) k/uL Monocytes # (Manual) (0-1.0) k/uL Metamyelocytes # (Man) (0) k/uL Nucleated RBCs (0-0) /100 WBC Manual Slide Review Polychromasia Anisocytosis PT (9.0-12.0) sec INR (<1.2) Sodium 137 (137-145) mmol/L Potassium 4.0 (3.5-5.1) mmol/L Chloride 103 (98-107) mmol/L Carbon Dioxide 28 (22-30) mmol/L Anion Gap 6 mmol/L BUN 31 H (9-20) mg/dL Creatinine 0.59 L (0.66-1.25) mg/dL Est GFR (CKD-EPI)AfAm >90 (>60 ml/min/1.73 sqM) Est GFR (CKD-EPI)NonAf >90 (>60 ml/min/1.73 sqM) Glucose 96 (74-99) mg/dL Plasma Lactic Acid Fer 3.9 H* (0.7-2.0) mmol/L Calcium 8.1 L (8.4-10.2) mg/dL Magnesium 2.2 (1.6-2.3) mg/dL Total Bilirubin 0.4 (0.2-1.3) mg/dL AST 57 (17-59) U/L ALT 49 (21-72) U/L Alkaline Phosphatase 321 H (38-126) U/L Troponin I (0.000-0.034) ng/mL NT-Pro-B Natriuret Pep 276 pg/mL Total Protein 5.2 L (6.3-8.2) g/dL Albumin 2.9 L (3.5-5.0) g/dL 12/15/18 12/15/18 12/15/18 Range/Units 22:12 22:12 22:17 WBC 5.6 (3.8-10.6) k/uL RBC 4.03 L (4.30-5.90) m/uL Hgb 12.0 L (13.0-17.5) gm/dL Hct 37.3 L (39.0-53.0) % MCV 92.6 (80.0-100.0) fL MCH 29.7 (25.0-35.0) pg MCHC 32.1 (31.0-37.0) g/dL RDW 17.9 H (11.5-15.5) % Plt Count 119 L D (150-450) k/uL Neutrophils % (Manual) 82 % Band Neutrophils % 12 % Lymphocytes % (Manual) 3 % Monocytes % (Manual) 2 % Metamyelocytes % 2 % Neutrophils # (Manual) 5.20 (1.3-7.7) k/uL Lymphocytes # (Manual) 0.17 L (1.0-4.8) k/uL Monocytes # (Manual) 0.11 (0-1.0) k/uL Metamyelocytes # (Man) 0.11 H (0) k/uL Nucleated RBCs 4 H (0-0) /100 WBC Manual Slide Review Performed Polychromasia Present Anisocytosis Slight PT 11.3 (9.0-12.0) sec INR 1.1 (<1.2) Sodium (137-145) mmol/L Potassium (3.5-5.1) mmol/L Chloride (98-107) mmol/L Carbon Dioxide (22-30) mmol/L Anion Gap mmol/L BUN (9-20) mg/dL Creatinine (0.66-1.25) mg/dL Est GFR (CKD-EPI)AfAm (>60 ml/min/1.73 sqM) Est GFR (CKD-EPI)NonAf (>60 ml/min/1.73 sqM) Glucose (74-99) mg/dL Plasma Lactic Acid Fer (0.7-2.0) mmol/L Calcium (8.4-10.2) mg/dL Magnesium (1.6-2.3) mg/dL Total Bilirubin (0.2-1.3) mg/dL AST (17-59) U/L ALT (21-72) U/L Alkaline Phosphatase (38-126) U/L Troponin I 0.031 (0.000-0.034) ng/mL NT-Pro-B Natriuret Pep pg/mL Total Protein (6.3-8.2) g/dL Albumin (3.5-5.0) g/dL Disposition Clinical Impression: Intractable pain, Lactic acidosis Disposition: ADMITTED IP TO THIS [facility] Condition: Fair Referrals: Mahendra Napier DO [Doctor of Osteopathic Medicine] - 1-2 days Decision Time: 01:23
[2018-12-15 22:29] LABS: Anisocytosis Slight; HCT 37.3 % (39.0-53.0); MCH 29.7 pg (25.0-35.0); MCHC 32.1 g/dL (31.0-37.0); MCV 92.6 fL (80.0-100.0); Mean Platelet Volume 8.4; RBC 4.03 m/uL (4.30-5.90); RDW 17.9 % (11.5-15.5)
[2018-12-15 22:32] LABS: Platelet Count 119 k/uL (150-450)
[2018-12-15 22:58] LABS: Band Neutrophils % 12 %; Lymphocytes # (M) 0.17 k/uL (1.0-4.8); Metamyelocytes # (M) 0.11 k/uL (0); Metamyelocytes % 2 %; Monocytes # (M) 0.11 k/uL (0-1.0); Neutrophils % (M) 82 %; Nucleated Red Blood Cells 4 /100 WBC (0-0); Total Cells Counted 200; WBC 5.6 k/uL (3.8-10.6)
[2018-12-15 22:59] LABS: Polychromasia Present
[2018-12-15] MEDS ORDERED: KETAMINE 10 MG/ML 20 ML VIAL IV STA (23:29)
[2018-12-15 23:51] LABS: ALT 49 U/L (21-72); AST 57 U/L (17-59); African American GFR (CKD) >90 (>60 ml/min/1.73 sqM); Albumin 2.9 g/dL (3.5-5.0); Alkaline Phosphatase 321 U/L (38-126); Anion Gap 6 mmol/L; Blood Urea Nitrogen 31 mg/dL (9-20); Calcium 8.1 mg/dL (8.4-10.2); Carbon Dioxide 28 mmol/L (22-30); Chloride 103 mmol/L (98-107); Glucose 96 mg/dL (74-99); INR 1.1 (<1.2); Magnesium 2.2 mg/dL (1.6-2.3); Prothrombin Time 11.3 sec (9.0-12.0); Sodium 137 mmol/L (137-145); Total Bilirubin 0.4 mg/dL (0.2-1.3); Total Protein 5.2 g/dL (6.3-8.2)
[2018-12-16] MEDS ORDERED: SODIUM CHLORIDE 0.9% 500 ML IV STA (00:10)
[2018-12-16] MEDS ORDERED: KETAMINE 50 MG/ML 10 ML VIAL IV STA (00:20)
[2018-12-16] MEDS ORDERED: KETAMINE IV ONE (00:30)
[2018-12-16] MEDS ORDERED: SODIUM CHLORIDE 0.9% IV ONE (00:30)
--- NOTE | 2018-12-16 01:09 | CT ---
EXAM: CT Angiography Chest With Intravenous Contrast CLINICAL HISTORY: Pain TECHNIQUE: Axial computed tomographic angiography images of the chest with intravenous contrast using pulmonary embolism protocol. CTDI is 0.085, 0. 085, 1.5, 1.5, 1.52, 7.2 mGy and DLP is 363.5 mGy-cm. This CT exam was performed using one or more of the following dose reduction techniques: automated exposure control, adjustment of the mA and/or kV according to patient size, and/or use of iterative reconstruction technique. MIP reconstructed images were created and reviewed. COMPARISON: PET/CT 11/09/2018 FINDINGS: Pulmonary arteries: No pulmonary embolism. Aorta: No thoracic aortic aneurysm or dissection. Lungs: Slight interval increase in size of scattered bilateral pulmonary nodules concerning for progression of metastatic disease. Nonspecific patchy bilateral groundglass opacities. Pleural space: No significant effusion. No pneumothorax. Heart: No cardiomegaly. No significant pericardial effusion. Bones/joints: Similar scattered sclerotic lesions involving the left proximal humerus, bilateral scapula a, multiple ribs, and the spine concerning for metastatic disease. No acute osseous abnormality. Soft tissues: Small fat-containing left Bochdalek hernia. Lymph nodes: Upper abdominal lymphadenopathy is likely metastatic. Liver: Ill-defined hypoattenuating hepatic lesions are concerning for metastatic disease. Gallbladder and bile ducts: Gallbladder surgically absent. Pancreas: Similar fullness of the tail of the pancreas. Adrenals: Again seen is a left adrenal nodule concerning for metastasis. Tubes, lines and devices: Right chest wall Port-A-Cath terminates near the cavoatrial junction. IMPRESSION: Nonspecific patchy bilateral groundglass opacities are concerning for an infectious or inflammatory process. Progression of thoracic metastatic disease. No pulmonary embolus, thoracic aortic dissection, or significant pleural effusions.
[2018-12-16] MEDS ORDERED: HYDROmorphone 1 MG/ML 1 ML SYRINGE IVP PRN (01:23)
[2018-12-16] MEDS ORDERED: NALOXONE 0.4 MG/ML 1 ML VIAL IV PRN (01:23)
[2018-12-16] MEDS ORDERED: MORPHINE SULFATE ER 30 MG TABLET PO PRN (01:26)
[2018-12-16] MEDS ORDERED: HYDROmorphone 4 MG TABLET PO PRN (01:44)
[2018-12-16] MEDS ORDERED: IBUPROFEN 800 MG TAB PO PRN (01:44)
[2018-12-16] MEDS ORDERED: MORPHINE CONC SOLN 10mg/0.5mL ORAL SYRG PO PRN ×2 (01:44→04:49)
[2018-12-16] MEDS ORDERED: SODIUM CHLORIDE 0.9% 1,000 ML IV ONE ×2 (01:44→20:19)
[2018-12-16] MEDS ORDERED: SENNOSIDES 8.6 MG TAB PO PRN (01:44)
[2018-12-16] MEDS ORDERED: oxyCODONE ER 15 MG TAB.ER.12H PO PRN (01:44)
--- NOTE | 2018-12-16 01:57 | P.HPIM ---
History of Present Illness H&P Date: 12/16/18 Chief Complaint: pain generalized 48 year old male with histroy of metastatic colon cancer patient presented today due to severe generalized pain, progressive in nature, uncontrolled, 10/10 in severity , along with postural dizziness, generalized weakness. non specific complaints. he reports that he normally has alot of pain , however, it has been worse over the past few days and progressive. [place], family reports poor PO intake, and decrease water intake. he has not passed a bowel movemetn in 2 weeks, but he does not feel bloated or contipated, and he reports that this is normal for him. he eats very little if anything. he has been dealing with severe generalized pain due to his metastatic cancer, and he is on alot of pain meds. however, today, he seemed to be in pain despite taking all his pain medictions. he also reports being on levaquin for pneumonia , which he has been taking for 10 days now,. denies any fevers or chills. he recently had oral thrush that has improved with nystatin. in the ED, CTA of the chest showed worsening metastatic disease, but no evidence of PE, labs revealed dehydration with lactic acidosis. patient admitted for aggressive rehydration and pain control Review of Systems Pertinent positives as noted in HPI. All other systems were reviewed and are negative Past Medical History Past Medical History: Cancer, GI Bleed Additional Past Medical History / Comment(s): Colon CA / Radiation Hx. kidney stones, History of Any Multi-Drug Resistant Organisms: None Reported Past Surgical History: Bowel Resection, Cholecystectomy Additional Past Surgical History / Comment(s): low anterior resection and laparoscopic liver biopsy, Other surgical hx: hiatal hernia repair, lithotripsy R renal calculus, colonoscopy in past/EGD, port-a-cath removed 06-14-18 Past Anesthesia/Blood Transfusion Reactions: No Reported Reaction Past Psychological History: No Psychological Hx Reported Smoking Status: Former smoker - Past Family History Father Family Medical History: No Reported History Additional Family Medical History / Comment(s): Father is healthy and in his 70's. Mother Family Medical History: Hypertension, Renal Disease Additional Family Medical History / Comment(s): Mother has had kidney stones. She is in her 70's. Medications and Allergies Home Medications Medication Instructions Recorded Confirmed Type DULoxetine HCL [Cymbalta] 60 mg PO DAILY 12/15/18 12/15/18 History Dexamethasone [Decadron] 2 mg PO TID 12/15/18 12/15/18 History Esomeprazole Magnesium [NexIUM] 40 mg PO DAILY 12/15/18 12/15/18 History HYDROmorphone [Dilaudid] 1 - 2 tab PO Q3H PRN 12/15/18 12/15/18 History Ibuprofen [Motrin] 800 mg PO TID PRN 12/15/18 12/15/18 History Lubiprostone [Amitiza] 24 mcg PO BID 12/15/18 12/15/18 History Methadone [Dolophine] 30 mg PO Q8H PRN 12/15/18 12/15/18 History Morphine 20mg/5ml 80 mg PO Q4H PRN 12/15/18 12/15/18 History Morphine Sulfate [Morphine Sulfate 30 mg PO Q4H PRN 12/15/18 12/15/18 History ER] Naloxegol Oxalate [Movantik] 25 mg PO DAILY 12/15/18 12/15/18 History Sennosides [Senokot] 8.6 mg PO Q12H PRN 12/15/18 12/15/18 History fentaNYL 100MCG/HR PATCH 100 mcg PO Q72H 12/15/18 12/15/18 History [Duragesic 100MCG/HR] oxyCODONE ER [OxyCONTIN] 15 mg PO Q4H PRN 12/15/18 12/15/18 History Allergies Allergy/AdvReac Type Severity Reaction Status Date / Time No Known Allergies Allergy Verified 12/15/18 22:13 Physical Exam Vitals: Vital Signs Temp Pulse Resp BP Pulse Ox 12/16/18 01:08 92 18 110/90 97 12/16/18 00:54 99 18 118/84 96 12/16/18 00:00 98 18 137/100 98 12/15/18 23:37 98 18 116/86 99 12/15/18 23:10 98 20 115/92 98 12/15/18 22:05 22 12/15/18 21:56 98.4 F 110 H 20 129/96 100 Intake and Output 12/15/18 12/15/18 12/16/18 14:59 22:59 06:59 Other: Weight 68.039 kg Constitutional: Patient looks in pain, however cooperative with exam and interview Eyes: Anicteric sclerae, moist conjunctiva, no lid-lag Pupils equal round reactive to light ENMT: NC/AT, dry mucous membranes Oropharynx clear, no erythema, exudates Neck: Supple, FROM, no masses, or JVD No carotid bruits No thyromegaly Lungs: Clear to auscultation Clear to percussion Normal respiratory effort, no accessory muscle use Cardiovascular: Heart tachycardic No murmurs, gallops, or rubs No peripheral edema Abdominal: Soft Nontender, no guarding, rebound or rigidity Abdomen moving with respiration Normoactive bowel sounds No hepatomegaly, No splenomegaly No palpable mass No abdominal wall hernia noted Skin: Normal temperature, tone, texture, turgor No induration No subcutaneous nodules No rash, lesions No ulcers Extremities: No digital cyanosis No clubbing Pedal pulses intact and symmetrical Radial pulses intact and symmetrical No calf tenderness Psychiatric: Alert and oriented to person, place and time Appropriate affect fair judgment Neuro Muscles Strength 4/5 in all 4 extremities Sensation to light touch grossly present throughout Cranial nerves II-XII grossly intact No focal sensory deficits Lymphatics: no palpable cervical or supraclavicular , or inguinal lymph nodes Results CBC & Chem 7: 12/15/18 22:17 12/15/18 22:12 Labs: Abnormal Lab Results - Last 24 Hours (Table) 12/15/18 12/15/18 12/15/18 Range/Units 22:12 22:12 22:17 RBC 4.03 L (4.30-5.90) m/uL Hgb 12.0 L (13.0-17.5) gm/dL Hct 37.3 L (39.0-53.0) % RDW 17.9 H (11.5-15.5) % Plt Count 119 L D (150-450) k/uL Lymphocytes # (Manual) 0.17 L (1.0-4.8) k/uL Metamyelocytes # (Man) 0.11 H (0) k/uL Nucleated RBCs 4 H (0-0) /100 WBC BUN 31 H (9-20) mg/dL Creatinine 0.59 L (0.66-1.25) mg/dL Plasma Lactic Acid Fer 3.9 H* (0.7-2.0) mmol/L Calcium 8.1 L (8.4-10.2) mg/dL Alkaline Phosphatase 321 H (38-126) U/L Total Protein 5.2 L (6.3-8.2) g/dL Albumin 2.9 L (3.5-5.0) g/dL Assessment and Plan Assessment: 48 year old male with histroy of metastatic colon cancer patient admitted under observation for aggressive rehydration and pain control Plan: Intractable pain secondary to metastatic colon cancer Dehydration with lactic acidosis Poor by mouth intake Protein calorie malnutrition Constipation mild anemia thrombocytopenia Plan Pain control Aggressive IV fluid hydration Evaluation by pain specialist DVT prophylaxis with heparin subcu 3 times a day follow up labs Patient is full code Surrogate decision-maker is patient Anticipated discharge in less than 48 hours to home A total of 60 minutes was spent on the care of this complex patient more than 50% of the time was spent in counseling and care coordination.
[2018-12-16] MEDS: METHADONE 10 MG TAB PO PRN ×3 (02:16→17:34)
[2018-12-16] MEDS: LORazepam 1 MG TAB PO PRN ×2 (04:12→20:42)
[2018-12-16] MEDS: SODIUM CHLORIDE 0.9% 1,000 ML IV SCH ×3 (04:17→22:00)
[2018-12-16] MEDS ORDERED: MORPHINE ORAL SOLN 10 MG/5 ML CUP PO PRN (04:39)
[2018-12-16] MEDS: HYDROmorphone 1 MG/ML 1 ML SYRINGE IVP PRN ×3 (05:46→11:44)
[2018-12-16] MEDS ORDERED: Lubiprostone [Amitiza] 24 MCG PO SCH (09:00)
--- NOTE | 2018-12-16 09:11 | P.PN ---
Progress Note - Text Consult dictated Impression: 1- Intractable pain 2nd to metastatic Colon Cancer to Bone 2- Advanced metastatic Adenocarcinoma of sigmoid colon, failed multiple Chemotherapy regimens, as well as clinical trials most recent at [facility]. Now on oral Chemotherapy (Lonesurf) 3- Acute Dehydration Rec: 1- Hydration 2- Analgesics as needed > adjusted Chemotherapy regimen 3- Resume Lonesurf after discharge 4- Poor prognosis D/W
--- NOTE | 2018-12-16 10:02 | P.CNOR ---
History of Present Illness - [facility] Consult date: 12/16/18 Consult reason: low back pain, back pain, other History of present illness: Patient is seen and examined at bedside today in regards to his low back and hip pain. He is a pleasant 48-year-old male who had a diagnosis in 2015 of colon cancer with bony metastasis. Over the past, years he has been functioning dec ently with treatments with chemotherapy and radiation. However over the past several months since July he has had significant decline. Since July he has lost over 70 pounds and has been having worsening pain in his back and around his pelvis and toward his left hip. He has had great difficulty with his mobilization and ambulation. He essentially has not had any appetite has been essentially not eating. He's been having worsening overall pain. He is requiring significantly more pain medications and is greatly dehydrated. His states that he essentially does not walk around or ambulate on his own. Review of Systems He is becoming cachectic. He is little to no diet or intake. He has diffuse pain over his back pelvis and toward his left hip. He is unable ambulate. Past Medical History Past Medical History: Cancer, GI Bleed Additional Past Medical History / Comment(s): Colon CA / Radiation Hx. kidney stones, metastatic bony lesions multiple areas of thoracic and lumbar spine and left hip and sacrum History of Any Multi-Drug Resistant Organisms: None Reported Past Surgical History: Bowel Resection, Cholecystectomy Additional Past Surgical History / Comment(s): low anterior resection and laparoscopic liver biopsy, Other surgical hx: hiatal hernia repair, lithotripsy R renal calculus, colonoscopy in past/EGD, port-a-cath removed 06-14-18 Past Anesthesia/Blood Transfusion Reactions: No Reported Reaction Past Psychological History: No Psychological Hx Reported Smoking Status: Former smoker - Past Family History Father Family Medical History: No Reported History Additional Family Medical History / Comment(s): Father is healthy and in his 70's. Mother Family Medical History: Hypertension, Renal Disease Additional Family Medical History / Comment(s): Mother has had kidney stones. She is in her 70's. Medications and Allergies Home Medications Medication Instructions Recorded Confirmed Type DULoxetine HCL [Cymbalta] 60 mg PO DAILY 12/15/18 12/15/18 History Dexamethasone [Decadron] 2 mg PO TID 12/15/18 12/15/18 History Esomeprazole Magnesium [NexIUM] 40 mg PO DAILY 12/15/18 12/15/18 History HYDROmorphone [Dilaudid] 1 - 2 tab PO Q3H PRN 12/15/18 12/15/18 History Ibuprofen [Motrin] 800 mg PO TID PRN 12/15/18 12/15/18 History Lubiprostone [Amitiza] 24 mcg PO BID 12/15/18 12/15/18 History Methadone [Dolophine] 30 mg PO Q8H PRN 12/15/18 12/15/18 History Morphine 20mg/5ml 80 mg PO Q4H PRN 12/15/18 12/15/18 History Morphine Sulfate [Morphine Sulfate 30 mg PO Q4H PRN 12/15/18 12/15/18 History ER] Naloxegol Oxalate [Movantik] 25 mg PO DAILY 12/15/18 12/15/18 History Sennosides [Senokot] 8.6 mg PO Q12H PRN 12/15/18 12/15/18 History fentaNYL 100MCG/HR PATCH 100 mcg PO Q72H 12/15/18 12/15/18 History [Duragesic 100MCG/HR] oxyCODONE ER [OxyCONTIN] 15 mg PO Q4H PRN 12/15/18 12/15/18 History Allergies Allergy/AdvReac Type Severity Reaction Status Date / Time No Known Allergies Allergy Verified 12/15/18 22:13 Physical Examination Osteopathic Statement: *. No significant issues noted on an osteopathic structural exam other than those noted in the History and Physical/Consult. - L Spine: dermatomal strength & reflexes bilateral Strength: hip flexion: 3/5 (He is quite lethargic as he has had significant pain medications and sedatives to alleviate his acute pain. He has generalized weakness globally in his cachectic. He has diffuse tenderness throughout his back around his pelvis and left hip) Results - Labs Labs: Abnormal Lab Results - Last 24 Hours (Table) 12/15/18 12/15/18 12/15/18 Range/Units 22:12 22:12 22:17 RBC 4.03 L (4.30-5.90) m/uL Hgb 12.0 L (13.0-17.5) gm/dL Hct 37.3 L (39.0-53.0) % RDW 17.9 H (11.5-15.5) % Plt Count 119 L D (150-450) k/uL Lymphocytes # (Manual) 0.17 L (1.0-4.8) k/uL Metamyelocytes # (Man) 0.11 H (0) k/uL Nucleated RBCs 4 H (0-0) /100 WBC BUN 31 H (9-20) mg/dL Creatinine 0.59 L (0.66-1.25) mg/dL Plasma Lactic Acid Fer 3.9 H* (0.7-2.0) mmol/L Calcium 8.1 L (8.4-10.2) mg/dL Alkaline Phosphatase 321 H (38-126) U/L Total Protein 5.2 L (6.3-8.2) g/dL Albumin 2.9 L (3.5-5.0) g/dL 12/16/18 Range/Units 03:35 RBC (4.30-5.90) m/uL Hgb (13.0-17.5) gm/dL Hct (39.0-53.0) % RDW (11.5-15.5) % Plt Count (150-450) k/uL Lymphocytes # (Manual) (1.0-4.8) k/uL Metamyelocytes # (Man) (0) k/uL Nucleated RBCs (0-0) /100 WBC BUN (9-20) mg/dL Creatinine (0.66-1.25) mg/dL Plasma Lactic Acid Fer 2.1 H* (0.7-2.0) mmol/L Calcium (8.4-10.2) mg/dL Alkaline Phosphatase (38-126) U/L Total Protein (6.3-8.2) g/dL Albumin (3.5-5.0) g/dL H & H 12/15/18 Range/Units 22:17 Hgb 12.0 L (13.0-17.5) gm/dL Hct 37.3 L (39.0-53.0) % Coagulation 12/15/18 Range/Units 22:12 INR 1.1 (<1.2) Result Diagrams: 12/15/18 22:17 12/15/18 22:12 - Diagnostic results Lumbar MRI with contrast: report reviewed, image reviewed (There is some imaging from August of his thoracic and lumbar spine as well as his pelvis which show bony metastasis at multiple areas throughout his thoracic and lumbar spine. There is some compression deformity. There is evidence of significant bony change at his left hip involvement of his femoral neck and intertrochanteric area.) Assessment and Plan Assessment: Metastatic colon cancer with multiple bony metastasis Severe pain due to metastasis Dehydration Multiple bony metastasis had thoracic and lumbar spine with low back pain Bony metastasis at left femoral neck with his pain Plan: Metastatic colon cancer with multiple bony metastasis Severe pain due to metastasis Dehydration Multiple bony metastasis had thoracic and lumbar spine with low back pain Bony metastasis at left femoral neck with his pain The patient has significant generalized pain and has had great decline over the past several months due to his metastatic colon cancer. There are number of bony metastasis his thoracic and lumbar spine and there is significant involvement at his left femoral neck. His much of his pain stems from his left hip and it would be worthwhile to get new x-rays of his compression deformities at his thoracic spine and lumbar spine as well as his pelvis and left hip to determine if there is obvious fracture. He has had significant worsening over the past several months and has poor oral intake and very poor nutrition. He is under appropriate pain control and is on oral chemotherapy appropriately. It is difficult to determine how well he would do if we were to consider some sort of prophylactic hip stabilization for him. I discussed this with his at bedside at length. We will go ahead and obtain new x-rays of his thoracic spine and lumbar spine and tucked hip and pelvis to reevaluate the fractures and have further consideration follow.
[2018-12-16] MEDS: PANTOPRAZOLE 40 MG TABLET PO SCH (10:21)
[2018-12-16] MEDS: HEPARIN SODIUM,PORCINE 5,000 UNIT/ML 1 ML VIAL SQ SCH ×3 (10:21→22:03)
[2018-12-16] MEDS: DULoxetine HCL 60 MG CAPSULE.DR PO SCH (10:21)
[2018-12-16] MEDS: Naloxegol Oxalate [Movantik] 25 MG PO SCH (10:25)
--- NOTE | 2018-12-16 11:10 | CONS ---
CONSULTATION DATE OF CONSULTATION: 12/16/2018. ADMITTING PHYSICIAN: Dr. Jones. REASON FOR CONSULTATION: Metastatic colon cancer. HISTORY OF PRESENT ILLNESS: Partha is a pleasant 48-year-old unfortunate gentleman who was diagnosed with stage III colon cancer of the sigmoid colon in February of 2016, then was found to have metastatic disease to 4 out of 6 lymph nodes. He received adjuvant a chemotherapy in the form of FOLFOX combination and has done well until 2018 when he was found to have diffuse metastatic disease to bone and liver. 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 He was treated with imperative second-line chemotherapy in the form of FOLFIRI with poor response. He received palliative radiation therapy to the right hip area and has been complaining of progressive pain. With further progression of the cancer, the patient resorted to clinical trials and was seen at [facility], [facility] as well as [facility], where he recently underwent a clinical trial, which unfortunately has failed in controlling his disease. He was started on 3rd line chemotherapy in the form of Lonesurf which she has tolerated well. He presented to the hospital with progressive weakness and dizziness, loss of functional status, and severe pain in the ribs as well as the right hip. When seen today, he was drowsy, following parenteral analgesics. He appears to be comfortable. PAST MEDICAL HISTORY: 1. Metastatic colon cancer as stated above. 2. Nephrolithiasis. 3. Prior GI bleed. PAST SURGICAL HISTORY: 1. Colonic resection. 2. Cholecystectomy. CURRENT MEDICATIONS: Reviewed and listed in electronic medical record. SOCIAL HISTORY: The patient is a lifetime nonsmoker. Denies any excessive use of alcohol. FAMILY HISTORY: Noncontributory for colon cancer. REVIEW OF SYSTEMS: Progressive loss of functional status and severe weakness and anorexia, weight loss, and increasing skeletal pain. Upon examination, the patient was drowsy. Pale. Skin is warm and dry. Hair distribution within normal for age and gender. Blood pressure was 122/87, pulse was 88 and regular, respiratory rate was 22 and not labored. Temperature of 97.7. No pathologic cervical, supraclavicular, infraclavicular or axillary lymphadenopathy. Trachea was midline. Chest was clear with good air exchange bilaterally. HEART: Sounds were normal S1 and S2. There was no S3, rubs, or murmurs auscultated. Abdomen was soft. The liver and spleen were not clinically palpable. No masses tenderness or inguinal lymphadenopathy. Extremities appeared to be unremarkable. LABORATORY STUDIES: Are reviewed with the patient and and listed in electronic medical record. IMPRESSION: 1. Intractable pain due to metastatic colon cancer to bone. 2. Advanced metastatic adenocarcinoma of the sigmoid colon to both bone and liver, failed multiple chemotherapeutic regimen including FOLFOX, FOLFIRI, and Xeloda, as well as multiple clinical trials as stated above. He is currently on oral systemic therapy in the form of Lonesurf. 3. Dehydration. RECOMMENDATIONS: 1. Agree with IV hydration. 2. Analgesics as needed, I adjusted analgesic regimen for optimal control. 3. Continue Lonesurf after discharge. 4. Overall a very poor prognosis. We will follow the patient along with you in the hospital. MELVA / CATHY: [id number] /
--- NOTE | 2018-12-16 12:16 | P.PN ---
Subjective Progress Note Date: 12/16/18 (delayed charting seen at 830 am) Principal diagnosis: Intractable pain Patient is a 48-year-old male with a history of metastatic colon cancer, nephrolithiasis, prior GI bleed who presented to the hospital with complaints of intractable pain, weakness, and anorexia. On arrival to the emergency department he underwent an extensive evaluation. On his initial vital signs his heart rate was found to be 110. Initial laboratory analysis showed an anemia with hemoglobin of 12, platelets 119, lactic acid 3.9, alkaline phosphatase elevated at 321, and hypocalcemia 8.1. CT of the chest showed nonspecific bilateral groundglass opacities concerning for infectious or in flammatory process as well as progression of the thoracic metastatic disease. He was given multiple doses of pain medications in the ER and ultimately required ketamine in order to control his pain. He was admitted for further monitoring. Hie was started on IV fluids for his lactic acidosis. On the morning of 12/16 pain was well-controlled however he was slightly obtunded secondary to pain medications. Patient seen and examined at bedside. He is fairly obtunded but is able to wake up and follow simple commands. provides history. She reports that he was doing well until 2 months ago. He has had a steady decline. They have been working with pain management to control his pain issues. They have been considering putting in a pain pump. They are not ready for hospice at this po int in time and wished to proceed with chemotherapy as he has only received one round of his newest chemo. Objective - Vital Signs Vital signs: Vital Signs Temp 97.7 F 12/16/18 03:26 Pulse 88 12/16/18 03:26 Resp 22 12/16/18 03:26 BP 122/87 12/16/18 03:26 Pulse Ox 98 12/16/18 03:26 Intake & Output 12/15/18 12/16/18 12/16/18 18:59 06:59 18:59 Output Total 0 Balance 0 Weight 68.039 kg Output: Urine 0 Other: # Bowel Movements 0 - Exam General: non toxic, no distress, appears older than stated age Derm: warm, dry Head: atraumatic, normocephalic, symmetric Eyes: EOMI, no lid lag, anicteric sclera Mouth: no lip lesion, mucus membranes moist Cardiovascular: S1S2 reg, no murmur, positive posterior tibial pulse bilateral, Lungs: Decreased breath sounds bilateral, no rhonchi, no rales , no accessory muscle use Abdominal: soft, nontender to palpation, no guarding, no appreciable organomegaly Ext: no gross muscle atrophy, no edema, no contractures Neuro: Moving all 4 extremities independently, no focal neuro deficits Psych: Lethargic, follows commands appropriately, - Labs CBC & Chem 7: 12/15/18 22:17 12/15/18 22:12 Labs: Abnormal Lab Results - Last 24 Hours (Table) 12/15/18 12/15/18 12/15/18 Range/Units 22:12 22:12 22:17 RBC 4.03 L (4.30-5.90) m/uL Hgb 12.0 L (13.0-17.5) gm/dL Hct 37.3 L (39.0-53.0) % RDW 17.9 H (11.5-15.5) % Plt Count 119 L D (150-450) k/uL Lymphocytes # (Manual) 0.17 L (1.0-4.8) k/uL Metamyelocytes # (Man) 0.11 H (0) k/uL Nucleated RBCs 4 H (0-0) /100 WBC BUN 31 H (9-20) mg/dL Creatinine 0.59 L (0.66-1.25) mg/dL Plasma Lactic Acid Fer 3.9 H* (0.7-2.0) mmol/L Calcium 8.1 L (8.4-10.2) mg/dL Alkaline Phosphatase 321 H (38-126) U/L Total Protein 5.2 L (6.3-8.2) g/dL Albumin 2.9 L (3.5-5.0) g/dL 12/16/18 Range/Units 03:35 RBC (4.30-5.90) m/uL Hgb (13.0-17.5) gm/dL Hct (39.0-53.0) % RDW (11.5-15.5) % Plt Count (150-450) k/uL Lymphocytes # (Manual) (1.0-4.8) k/uL Metamyelocytes # (Man) (0) k/uL Nucleated RBCs (0-0) /100 WBC BUN (9-20) mg/dL Creatinine (0.66-1.25) mg/dL Plasma Lactic Acid Fer 2.1 H* (0.7-2.0) mmol/L Calcium (8.4-10.2) mg/dL Alkaline Phosphatase (38-126) U/L Total Protein (6.3-8.2) g/dL Albumin (3.5-5.0) g/dL Assessment and Plan Assessment: Intractable pain secondary to metastatic colon cancer with history of bony metastases -Increase fentanyl patch to 125 g -Continue with home methadone and Dilaudid IV -Await pain management recommendations -Await oncology recommendations -Discussed with who is not in favor of hospice or alternatives at this point in time. -Continue with Motrin, steroids Constipation -Continue home Movantik - lactulose Dehydration with lactic acidosis - IVF - lactic acid likely related to malignancy Severe protein calorie malnutrition with recent weight loss -Start with Magic cups -Dietitian evaluation Anemia with thrombocytopenia -Suspect secondary to chemotherapy -Follow CBC DVT prophylaxis: Lovenox Discussed with: Patient, , nursing Anticipated discharge: 2-[address]: home A total of 45 minutes was spent on the care of this complex patient more than 50% of the time was spent in counseling and care coordination.
[2018-12-16 12:32] LABS: Appearance,Urine Clear (Clear); Bilirubin,Urine Negative (Negative); Blood,Urine Moderate (Negative); Calcium Oxalate Crystals,Urine Occasional /hpf; Color,Urine Yellow; Glucose,Urine (UA) Negative (Negative); Granular Casts,Urine 3 /lpf (0); Hyaline Casts,Urine 1 /lpf (0-2); Ketones,Urine Negative (Negative); Leukocyte Esterase,Urine Negative (Negative); Mucus,Urine Few /hpf; Nitrite,Urine Negative (Negative); Protein,Urine 1+ (Negative); RBC,Urine 52 /hpf (0-5); Squamous Epithelial Cell,Urine 1 /hpf (0-4); Urobilinogen,Urine <2.0 mg/dL (<2.0)
[2018-12-16 12:34] LABS: Specific Gravity,Urine >1.050 (1.001-1.035)
[2018-12-16] MEDS: HYDROmorphone (PF) 50 MG in SODIUM CHLORIDE 0.9% 45 ML IV SCH ×2 (13:04→21:57)
[2018-12-16] MEDS: PIPERACILLIN-TAZOBACTAM 3.375 GM in SODIUM CHLORIDE 0.9% 100 ML IVPB SCH ×2 (13:04→19:47)
[2018-12-16] MEDS: LORATADINE 10 MG TAB PO SCH (13:16)
--- NOTE | 2018-12-16 13:20 | P.CNPUL ---
History of Present Illness Consult date: 12/16/18 Reason for consult: pneumonia Chief complaint: severe bone pain secondary to metastatic colon cancer History of present illness: this is a 48-year-old white male with history of metastatic colon cancer, admitted on 12/15/2018 with intractable pain secondary to metastatic colon cancer to the bones. Patient has been recently on Levaquin orally for the last 10 days for what his primary care physician considered treatment for pneumonia. Patient was admitted, CT of the chest showed nonspecific patchy bilateral groundglass opacities felt to be infectious or inflammatory in nature. He was also found to have multiple pulmonary nodules secondary to metastatic disease to the lungs. At any rate considering his abnormal CT of the chest, this consult was initiated. The patient himself is in severe pain, and he was given earlier significant amount of narcotics. He is not the greatest historian, however I was able to get some history from his family at bedside. Patient was treated recently for pneumonia, and he had no cough no wheezing no fever no chills, no hemoptysis, he had mostly symptoms of severe pain all over. And the main reason he was admitted was mostly because his pain was intractable. I discussed his condition with the oncologist, and apparently he has severe metastatic colon cancer,and his condition is basically terminal.his diagnosis was made in February of 2016, he did receive adjuvant chemotherapy and he was later found in 2018 to have diffuse metastatic disease to bone and liver. 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 He received imperative second line chemotherapy in the form of FOLFIRI with poor response. He received palliative radiation therapy to the right hip area and has been complaining of progressive pain. Has been seen in many tertiary care centers including [facility], [facility], and [facility] and he failed recent clinical trial to control his disease. Patient was started on third line chemotherapy in the form of lonesurf. Patient presented this time with mostly weakness dizziness less of functional status, and severe pain in the ribs as well as right hip. No active pulmonary symptoms. And the CT chest findings are basically nonspecific. Review of Systems patient is not a great historian, received significant amount of narcotics for pain control earlier before I saw him, family is at bedside, he had mostly symptoms of pain but no active pulmonary symptoms.patient has mostly cussed seashell symptoms mostly weight loss, and severe pain. Past Medical History Past Medical History: Cancer, GI Bleed Additional Past Medical History / Comment(s): Colon CA / Radiation Hx. kidney stones, metastatic bony lesions multiple areas of thoracic and lumbar spine and left hip and sacrum History of Any Multi-Drug Resistant Organisms: None Reported Past Surgical History: Bowel Resection, Cholecystectomy Additional Past Surgical History / Comment(s): low anterior resection and laparoscopic liver biopsy, Other surgical hx: hiatal hernia repair, lithotripsy R renal calculus, colonoscopy in past/EGD, port-a-cath removed 06-14-18 Past Anesthesia/Blood Transfusion Reactions: No Reported Reaction Past Psychological History: No Psychological Hx Reported Smoking Status: Former smoker - Past Family History Father Family Medical History: No Reported History Additional Family Medical History / Comment(s): Father is healthy and in his 70's. Mother Family Medical History: Hypertension, Renal Disease Additional Family Medical History / Comment(s): Mother has had kidney stones. She is in her 70's. Medications and Allergies Home Medications Medication Instructions Recorded Confirmed Type DULoxetine HCL [Cymbalta] 60 mg PO DAILY 12/15/18 12/15/18 History Dexamethasone [Decadron] 2 mg PO TID 12/15/18 12/15/18 History Esomeprazole Magnesium [NexIUM] 40 mg PO DAILY 12/15/18 12/15/18 History HYDROmorphone [Dilaudid] 1 - 2 tab PO Q3H PRN 12/15/18 12/15/18 History Ibuprofen [Motrin] 800 mg PO TID PRN 12/15/18 12/15/18 History Lubiprostone [Amitiza] 24 mcg PO BID 12/15/18 12/15/18 History Methadone [Dolophine] 30 mg PO Q8H PRN 12/15/18 12/15/18 History Morphine 20mg/5ml 80 mg PO Q4H PRN 12/15/18 12/15/18 History Morphine Sulfate [Morphine Sulfate 30 mg PO Q4H PRN 12/15/18 12/15/18 History ER] Naloxegol Oxalate [Movantik] 25 mg PO DAILY 12/15/18 12/15/18 History Sennosides [Senokot] 8.6 mg PO Q12H PRN 12/15/18 12/15/18 History fentaNYL 100MCG/HR PATCH 100 mcg PO Q72H 12/15/18 12/15/18 History [Duragesic 100MCG/HR] oxyCODONE ER [OxyCONTIN] 15 mg PO Q4H PRN 12/15/18 12/15/18 History Allergies Allergy/AdvReac Type Severity Reaction Status Date / Time No Known Allergies Allergy Verified 12/15/18 22:13 Physical Exam Vitals: Vital Signs Temp Pulse Pulse Resp BP BP Pulse Ox 12/16/18 12:09 97.9 F 98 17 119/83 96 12/16/18 03:26 97.7 F 88 22 122/87 98 12/16/18 01:08 92 18 110/90 97 12/16/18 00:54 99 18 118/84 96 12/16/18 00:00 98 18 137/100 98 12/15/18 23:37 98 18 116/86 99 12/15/18 23:10 98 20 115/92 98 12/15/18 22:05 22 12/15/18 21:56 98.4 F 110 H 20 129/96 100 Intake and Output 12/15/18 12/16/18 12/16/18 22:59 06:59 14:59 Output Total 0 Balance 0 Output: Urine 0 Other: Voiding Method Indwelling Catheter # Bowel Movements 0 Weight 68.039 kg Physical Exam: Revealed 48-year-old white male in pain, in no form of respiratory distress. Head: Atraumatic, normocephalic. No cervical adenopathy. HEENT:[Neck is supple.] [No neck masses.] [No thyromegaly.] [No JVD.]PERRLA, EOMI, no icterus. Chest: [Clear throughout, no crackles, no rhonchi, no wheezes.] Cardiac Exam: [Normal S1 and S2, no S3 gallop, no murmur.] Abdomen: [Soft, nontender, no megaly, no rebound, no guarding, normal bowel sounds.] Extremities: [No clubbing, no edema, no cyanosis.] Neurological Exam: cannot be assessed, patient is on narcotics for pain control. Arousable, follows simple instructions. Psychiatric: Could not be assessed. Skin: No rashes. Lymphatics: No lymphadenopathy. Results - Laboratory Findings CBC and BMP: 12/15/18 22:17 12/15/18 22:12 PT/INR, D-dimer PT 11.3 sec (9.0-12.0) 12/15/18 22:12 INR 1.1 (<1.2) 12/15/18 22:12 Abnormal lab findings: Abnormal Labs 12/15/18 12/15/18 12/15/18 22:12 22:12 22:17 RBC 4.03 L Hgb 12.0 L Hct 37.3 L RDW 17.9 H Plt Count 119 L D Lymphocytes # (Manual) 0.17 L Metamyelocytes # (Man) 0.11 H Nucleated RBCs 4 H BUN 31 H Creatinine 0.59 L Plasma Lactic Acid Fer 3.9 H* Calcium 8.1 L Alkaline Phosphatase 321 H Total Protein 5.2 L Albumin 2.9 L Ur Specific [place] Urine Protein Urine Blood Urine RBC Calcium Oxalate Crystal Urine Mucus 12/16/18 12/16/18 03:35 11:45 RBC Hgb Hct RDW Plt Count Lymphocytes # (Manual) Metamyelocytes # (Man) Nucleated RBCs BUN Creatinine Plasma Lactic Acid Fer 2.1 H* Calcium Alkaline Phosphatase Total Protein Albumin Ur Specific [place] >1.050 H Urine Protein 1+ H Urine Blood Moderate H Urine RBC 52 H Calcium Oxalate Crystal Occasional H Urine Mucus Few H - Diagnostic Findings CT scan - chest: image reviewed (as noted in HPI.) Assessment and Plan Assessment: impression: 1 intractable pain due to metastatic colon cancer to bone. 2 strongly suspect metastatic colon cancer to the lungs after reviewing his CT of the chest. 3 nonspecific opacities noted on the CT of the chest, could very well be related to community-acquired pneumonia . Patient was recently treated with Levaquin for 10 days for presumptive pneumonia as per his primary care physician. 4 advanced metastatic adenocarcinoma of the sigmoid colon with bone liver and pulmonary metastasis. Recommendation: Continue present treatment plan including hydration, analgesics and pain control, will add antibiotics in the form of Zosyn since the patient just finished a recent course of Levaquin, and we will follow. Prognosis is extremely poor and guarded. Discussed his condition with his family at bedside.I also discussed his condition with the oncologist on the case. Time with Patient: Greater than 30
[2018-12-16 15:09] VITALS: BMI 20.3
--- NOTE | 2018-12-16 18:53 | P.CONS ---
History of Present Illness - Reason for Consult Consult date: 12/16/18 Requesting physician: Bc English - Chief Complaint intractable pain - History of Present Illness Mr. Perez is a 48-year-old gentleman with known metastatic colon cancer has been receiving treatment for the past 3 years. He is well known to me as a been attempting to help with pain control for the past 5 or 6 months. When we first met in the office he had metastatic disease of the lumbar spine, pelvis, ribs and left femoral head. At that time I recommended intrathecal pump and hip hemiarthroplasty and he declined stating that he didn't need that yet and that m ay affect his participation in a medication trial in [place]. When he presented in the office he was on fentanyl 100 g patch with [place] every 4-6 hours which he stated didn't help his pain at all. I then started him on methadone with Dilaudid for breakthrough. His pain was somewhat manageable and he went out to [place] in the palliative care doctor in [place] reduced the methadone and put him back on the 100 g fentanyl patch. Since that time he has been on a combination of varying doses of methadone 3 times daily, fentanyl patch 100 g every 48 hours, Dilaudid 4-12 mg every 3 hours and morphine 80 mg every 4-6 hours. His pain is been very difficult to manage and Monday he c ontacted his primary oncology team and myself about difficulty breathing, lack of energy and terrible pain and he was advised to go to the ER for evaluation. He was admitted and received CAT scan which may reveal disease in the pulmonary tissue versus pneumonia. He was started on Dilaudid infusion. In the room he is arousable but comfortable. Review of Systems Unable to be obtained Past Medical History Past Medical History: Cancer, GI Bleed Additional Past Medical History / Comment(s): Colon CA / Radiation Hx. kidney stones, metastatic bony lesions multiple areas of thoracic and lumbar spine and left hip and sacrum History of Any Multi-Drug Resistant Organisms: None Reported Past Surgical History: Bowel Resection, Cholecystectomy Additional Past Surgical History / Comment(s): low anterior resection and laparoscopic liver biopsy, Other surgical hx: hiatal hernia repair, lithotripsy R renal calculus, colonoscopy in past/EGD, port-a-cath removed 06-14-18 Past Anesthesia/Blood Transfusion Reactions: No Reported Reaction Past Psychological History: No Psychological Hx Reported Smoking Status: Former smoker - Past Family History Father Family Medical History: No Reported History Additional Family Medical History / Comment(s): Father is healthy and in his 70 's. Mother Family Medical History: Hypertension, Renal Disease Additional Family Medical History / Comment(s): Mother has had kidney stones. She is in her 70's. Medications and Allergies Home Medications Medication Instructions Recorded Confirmed Type DULoxetine HCL [Cymbalta] 60 mg PO DAILY 12/15/18 12/15/18 History Dexamethasone [Decadron] 2 mg PO TID 12/15/18 12/15/18 History Esomeprazole Magnesium [NexIUM] 40 mg PO DAILY 12/15/18 12/15/18 History HYDROmorphone [Dilaudid] 1 - 2 tab PO Q3H PRN 12/15/18 12/15/18 History Ibuprofen [Motrin] 800 mg PO TID PRN 12/15/18 12/15/18 History Lubiprostone [Amitiza] 24 mcg PO BID 12/15/18 12/15/18 History Methadone [Dolophine] 30 mg PO Q8H PRN 12/15/18 12/15/18 History Morphine 20mg/5ml 80 mg PO Q4H PRN 12/15/18 12/15/18 History Morphine Sulfate [Morphine Sulfate 30 mg PO Q4H PRN 12/15/18 12/15/18 History ER] Naloxegol Oxalate [Movantik] 25 mg PO DAILY 12/15/18 12/15/18 History Sennosides [Senokot] 8.6 mg PO Q12H PRN 12/15/18 12/15/18 History fentaNYL 100MCG/HR PATCH 100 mcg PO Q72H 12/15/18 12/15/18 History [Duragesic 100MCG/HR] oxyCODONE ER [OxyCONTIN] 15 mg PO Q4H PRN 12/15/18 12/15/18 History Allergies Allergy/AdvReac Type Severity Reaction Status Date / Time No Known Allergies Allergy Verified 12/15/18 22:13 Physical Exam Osteopathic Statement: *. No significant issues noted on an osteopathic structural exam other than those noted in the History and Physical/Consult. Vitals: Vital Signs Temp Pulse Pulse Resp BP BP Pulse Ox 12/16/18 12:09 97.9 F 98 17 119/83 96 12/16/18 03:26 97.7 F 88 22 122/87 98 12/16/18 01:08 92 18 110/90 97 12/16/18 00:54 99 18 118/84 96 12/16/18 00:00 98 18 137/100 98 12/15/18 23:37 98 18 116/86 99 12/15/18 23:10 98 20 115/92 98 12/15/18 22:05 22 12/15/18 21:56 98.4 F 110 H 20 129/96 100 Intake and Output 12/16/18 12/16/18 12/16/18 06:59 14:59 22:59 Intake Total 1000 9.867 Output Total 0 Balance 0 1000 9.867 Intake: Intake, IV Titration 1000 9.867 Amount HYDROmorphone (PF) 50 mg 9.867 In Sodium Chloride 0.9% 45 ml @ 2 MG/HR 2 mls/hr IV .Q24H GILD[facility]O Rx#: [id number] Sodium Chloride 0.9% 1, 1000 000 ml @ 125 mls/hr IV . Q8H GILDARDO Rx#:[id number] Output: Urine 0 Other: Voiding Method Indwelling Catheter # Voids 1 # Bowel Movements 0 Weight 68.039 kg Gen.: Patient is arousable, appropriate HEENT: Normocephalic atraumatic, extraocular muscles intact Respiratory: No accessory muscle use noted, breathing nonlabored Cardiovascular: No peripheral edema regular rate and rhythm Abdomen: Soft nontender nondistended Musculoskeletal: Patient demonstrates antigravity strength of the extremities Neurologic: Sensation to light touch intact, no ankle clonus Results CBC & Chem 7: 12/15/18 22:17 12/15/18 22:12 Labs: Abnormal Lab Results - Last 24 Hours (Table) 12/15/18 12/15/18 12/15/18 Range/Units 22:12 22:12 22:17 RBC 4.03 L (4.30-5.90) m/uL Hgb 12.0 L (13.0-17.5) gm/dL Hct 37.3 L (39.0-53.0) % RDW 17.9 H (11.5-15.5) % Plt Count 119 L D (150-450) k/uL Lymphocytes # (Manual) 0.17 L (1.0-4.8) k/uL Metamyelocytes # (Man) 0.11 H (0) k/uL Nucleated RBCs 4 H (0-0) /100 WBC BUN 31 H (9-20) mg/dL Creatinine 0.59 L (0.66-1.25) mg/dL Plasma Lactic Acid Fer 3.9 H* (0.7-2.0) mmol/L Calcium 8.1 L (8.4-10.2) mg/dL Alkaline Phosphatase 321 H (38-126) U/L Total Protein 5.2 L (6.3-8.2) g/dL Albumin 2.9 L (3.5-5.0) g/dL Ur Specific [place] (1.001-1.035) Urine Protein (Negative) Urine Blood (Negative) Urine RBC (0-5) /hpf Calcium Oxalate Crystal (None) /hpf Urine Mucus (None) /hpf 12/16/18 12/16/18 Range/Units 03:35 11:45 RBC (4.30-5.90) m/uL Hgb (13.0-17.5) gm/dL Hct (39.0-53.0) % RDW (11.5-15.5) % Plt Count (150-450) k/uL Lymphocytes # (Manual) (1.0-4.8) k/uL Metamyelocytes # (Man) (0) k/uL Nucleated RBCs (0-0) /100 WBC BUN (9-20) mg/dL Creatinine (0.66-1.25) mg/dL Plasma Lactic Acid Fer 2.1 H* (0.7-2.0) mmol/L Calcium (8.4-10.2) mg/dL Alkaline Phosphatase (38-126) U/L Total Protein (6.3-8.2) g/dL Albumin (3.5-5.0) g/dL Ur Specific [place] >1.050 H (1.001-1.035) Urine Protein 1+ H (Negative) Urine Blood Moderate H (Negative) Urine RBC 52 H (0-5) /hpf Calcium Oxalate Crystal Occasional H (None) /hpf Urine Mucus Few H (None) /hpf Microbiology - Last 24 Hours (Table) 12/16/18 11:45 Urine Culture - Preliminary Urine,Voided CT scan - chest: report reviewed Assessment and Plan (1) Pain due to malignant neoplasm metastatic to bone Current Visit: Yes Status: Acute Code(s): G89.3 - NEOPLASM RELATED PAIN (ACUTE) (CHRONIC); C79.51 - SECONDARY MALIGNANT NEOPLASM OF BONE SNOMED Code(s): 534163531 (2) Chronic pain due to malignant neoplastic disease Current Visit: Yes Status: Acute Code(s): G89.3 - NEOPLASM RELATED PAIN (ACUTE) (CHRONIC) SNOMED Code(s): 848132965 (3) Chronic pain Current Visit: Yes Status: Acute Code(s): G89.29 - OTHER CHRONIC PAIN SNOMED Code(s): 43124812 (4) Colon carcinoma metastatic to bone Current Visit: Yes Status: Acute Code(s): C18.9 - MALIGNANT NEOPLASM OF COLON, UNSPECIFIED; C79.51 - SECONDARY MALIGNANT NEOPLASM OF BONE SNOMED Code(s): 095775072 Plan: I discussed potential options with the patient's brother who was present at the time of encounter. During discussion patient was arousable but didn't stay awake for the entirety of the conversation. From what I know of Mr. Perez he would prefer to continue treatment of the disease and to control his pain that would require outpatient implantation of intrathecal delivery system with a catheter placed at the T8 level. Discussed that to my knowledge no one implants here at the hospital. I can arrange outpatient implantation for him as soon as possible. Discussed with patient and his brother that the Dilaudid drip makes him the most comfortable he has been in quite a while however he is unable to go home with the Dilaudid drip unless they choose hospice. I think the admitting physician that decided to put him on the Dilaudid drip made an excellent choice. If he and his family choose against hospice and continued treatment with outpatient pain management then the next step would be to terminate the drip, make the fentanyl patches every 48 hours, continue methadone 30mg 3 times a day for now however there is room to increase methadone as his QTc interval was under 450 and continue Dilaudid 8-12 mg every 3 hours with the morphine 80 mg every 4-6 hours until he can have a pump implanted. Time with Patient: Greater than 30
[2018-12-16] MEDS: NICOTINE 14MG/24HR PATCH TRANSDERM SCH (20:37)
[2018-12-17] MEDS: PIPERACILLIN-TAZOBACTAM 3.375 GM in SODIUM CHLORIDE 0.9% 100 ML IVPB SCH ×3 (03:02→18:23)
[2018-12-17] MEDS: SODIUM CHLORIDE 0.9% 1,000 ML IV SCH ×2 (05:22→12:50)
[2018-12-17] MEDS: HYDROmorphone (PF) 50 MG in SODIUM CHLORIDE 0.9% 45 ML IV SCH ×2 (09:22→18:13)
[2018-12-17] MEDS: PANTOPRAZOLE 40 MG TABLET PO SCH (09:28)
[2018-12-17] MEDS: LORATADINE 10 MG TAB PO SCH (09:28)
[2018-12-17] MEDS: METHADONE 10 MG TAB PO PRN ×2 (09:28→19:15)
[2018-12-17] MEDS: DULoxetine HCL 60 MG CAPSULE.DR PO SCH (09:29)
[2018-12-17] MEDS: LORazepam 1 MG TAB PO PRN (09:32)
[2018-12-17] MEDS: Naloxegol Oxalate [Movantik] 25 MG PO SCH (11:25)
[2018-12-17] MEDS: HEPARIN SODIUM,PORCINE 5,000 UNIT/ML 1 ML VIAL SQ SCH ×2 (11:25→15:51)
[2018-12-17] MEDS: NICOTINE 14MG/24HR PATCH TRANSDERM SCH (11:26)
[2018-12-17] MEDS ORDERED: LORazepam 2 MG/ML INJ IV PRN (11:35)
--- NOTE | 2018-12-17 12:24 | P.PN ---
Subjective Progress Note Date: 12/17/18 Patient is a 48-year-old male with a history of metastatic colon cancer, nephrolithiasis, prior GI bleed who presented to the hospital with complaints of intractable pain, weakness, and anorexia. On arrival to the emergency department he underwent an extensive evaluation. On his initial vital signs his heart rate was found to be 110. Initial laboratory analysis showed an anemia with hemoglobin of 12, platelets 119, lactic acid 3.9, alkaline phosphatase elevated at 321, and hypocalcemia 8.1. CT of the chest showed nonspecific bilateral groundglass opacities concerning for infectious or inflammatory process as well as progression of the thoracic metastatic disease. He was given multiple doses of pain medications in the ER and ultimately required ketamine in order to control his pain. He was admitted for further monitoring. Hie was started on IV fluids for his lactic acidosis. On the morning of 12/16 pain was well-controlled however he was slightly obtunded secondary to pain medications. Patient seen and examined at bedside. He is fairly obtunded but is able to wake up and follow simple commands. provides history. She reports that he was doing well until 2 months ago. He has had a steady decline. They have been working with pain management to control his pain issues. They have been considering putting in a pain pump outpatient. They are not ready for hospice at this point in time and wished to proceed with chemotherapy as he has only received one round of his newest chemo. 12/17/2018 patient was covered by the [facility] physician group over the weekend. Patient still having intractable pain. The IV Dilaudid increased to 7 mg per hour. Pain service was increasing the fentanyl patch 2 every 48 hours instead of 72 hours. Patient's family refused lab work and x-rays to be completed today. Awaiting 's decision regarding possible hospice. Patient is also having low urine output. Patient is currently sleeping but arousable does state he is still in pain. Objective - Vital Signs Vital signs: Vital Signs Temp 97.9 F 12/17/18 05:00 Pulse 125 H 12/17/18 05:00 Resp 22 12/17/18 08:00 BP 111/79 12/17/18 05:00 Pulse Ox 95 12/17/18 05:00 Intake & Output 12/16/18 12/17/18 12/17/18 18:59 06:59 18:59 Intake Total 1240.184 9853.133 54.134 Output Total 700 Balance 2718.235 7148.133 54.134 Weight 68.039 kg Intake: Intake, IV Titration 4469.676 8164.133 54.134 Amount HYDROmorphone (PF) 50 mg 9.867 16.133 54.134 In Sodium Chloride 0.9% 45 ml @ 2 MG/HR 2 mls/hr IV .Q24H [facility] Rx#: [id number] Piperacillin-Tazobactam 3 300 .375 gm In Sodium Chloride 0.9% 100 ml @ 25 mls/hr IVPB Q8H [facility]ARDO Rx#: [id number] Sodium Chloride 0.9% 1, 1000 1225 000 ml @ 125 mls/hr IV . Q8H GILDARDO Rx#:[id number] Sodium Chloride 0.9% 1, 2000 000 ml @ 999 mls/hr IV . Q1H1M ONE Rx#:[id number] Oral 120 Output: Urine 700 Other: Voiding Method Urinal Urinal Indwelling Catheter # Voids 1 1 # Bowel Movements 0 - Exam Gen. appears stated age, Head normocephalic Neck supple Lungs diminished bilaterally no wheezing or crackles noted Heart regular rate and rhythm S1-S2, no rub or gallop Abdomen is soft nontender nondistended positive bowel sounds no hepatosplenomegaly Extremities no edema Neuro sleeping, able to answer some questions before falling back to sleep. - Labs CBC & Chem 7: 12/15/18 22:17 12/15/18 22:12 Labs: Abnormal Lab Results - Last 24 Hours (Table) 12/16/18 Range/Units 11:45 Ur Specific [place] >1.050 H (1.001-1.035) Urine Protein 1+ H (Negative) Urine Blood Moderate H (Negative) Urine RBC 52 H (0-5) /hpf Calcium Oxalate Crystal Occasional H (None) /hpf Urine Mucus Few H (None) /hpf Microbiology - Last 24 Hours (Table) 12/16/18 00:32 Blood Culture - Preliminary Blood No Growth after 24 hours 12/16/18 11:45 Urine Culture - Preliminary Urine,Voided Assessment and Plan Assessment: 1. Intractable pain secondary to metastatic colon cancer to the bone. Patient seen by pain service. Currently on IV Dilaudid drip and fentanyl patch. Pain service was also added IV Ativan as needed for anxiety. 2. 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 Failed multiple chemotherapy regimens per oncology. Currently on [place] chemotherapy which would be resumed after discharge. 3. Dehydration with lactic acidosis. Continue IV fluids. Lactic acid likely related to malignancy. 4. Per pulmonary service strongly suspect metastatic colon cancer to the lungs after reviewing computed tomography scan of the chest. 5. Possible community-acquired pneumonia: Currently on Zosyn 6. Severe protein calorie malnutrition continue Magic cups 7. Anemia and thrombocytopenia secondary to chemotherapy 8. Constipation continue the Movantik and lactulose DVT prophylaxis subcu heparin Patient's overall prognosis is guarded. CODE STATUS is no code. Awaiting 's decision regarding hospice. I performed an examination of the patient and discussed their management with the physician Plumbing Assembler Installer. I have reviewed the Physician Plumbing Assembler Installer's notes and agree with the documented findings and plan of care
[2018-12-17] MEDS ORDERED: fentaNYL (PF) 50 MCG/ML 2 ML AMP IVP PRN (13:00)
[2018-12-17 13:14] VITALS: BP 121/73; RESP 18; TEMP 98.5
[2018-12-17 16:30] VITALS: PULSE 125
--- NOTE | 2018-12-17 16:50 | P.PN ---
Subjective Progress Note Date: 12/17/18 Principal diagnosis: Intractable pain secondary to malignancy, metastatic colon cancer In follow-up today patient is requiring large amounts of narcotics to maintain pain control, patient is mostly sleeping, when he is awake he is complaining of pain, his brother and his mother at the bedside. He is tolerating fluids Objective - Vital Signs Vital signs: Vital Signs Temp 98.5 F 12/17/18 13:10 Pulse 125 H 12/17/18 16:30 Resp 18 12/17/18 16:30 BP 121/73 12/17/18 13:10 Pulse Ox 92 L 12/17/18 13:10 Intake & Output 12/16/18 12/17/18 12/17/18 18:59 06:59 18:59 Intake Total 2478.904 3877.133 1526.051 Output Total 700 650 Balance 1550.800 6845.133 876.051 Weight 68.039 kg Intake: Intake, IV Titration 6189.936 3556.133 1026.051 Amount HYDROmorphone (PF) 50 mg 9.867 16.133 76.051 In Sodium Chloride 0.9% 45 ml @ 2 MG/HR 2 mls/hr IV .Q24H [facility] Rx#: [id number] Piperacillin-Tazobactam 3 300 100 .375 gm In Sodium Chloride 0.9% 100 ml @ 25 mls/hr IVPB Q8H [facility] Rx#: [id number] Sodium Chloride 0.9% 1, 1000 1225 850 000 ml @ 125 mls/hr IV . Q8H [facility] Rx#:[id number] Sodium Chloride 0.9% 1, 2000 000 ml @ 999 mls/hr IV . Q1H1M [facility] Rx#:[id number] Oral 120 500 Output: Urine 700 650 Other: Voiding Method Urinal Urinal Indwelling Catheter # Voids 1 1 # Bowel Movements 0 0 - Exam Well-developed, well-nourished male, laying in bed, moderate to severe distress when awake, very restless when not heavily medicated to the point of sedation, respirations are even and unlabored when patient is sleeping, when he talks he asks for pain meds, he did recognize the voices of his family - Labs CBC & Chem 7: 12/15/18 22:17 12/15/18 22:12 Labs: Microbiology - Last 24 Hours (Table) 12/16/18 11:45 Urine Culture - Final Urine,Voided 12/16/18 00:32 Blood Culture - Preliminary Blood No Growth after 24 hours Assessment and Plan (1) Pain of metastatic malignancy Narrative/Plan: Case was discussed with RN as well as caser in. Pain management is adjusting pain medications for tolerance. Current Visit: Yes Status: Acute Priority: High Code(s): G89.3 - NEOPLASM RELATED PAIN (ACUTE) (CHRONIC) SNOMED Code(s): 942572030 Plan: Case reviewed with Attending We had a discussion about pt condition, goals of care and desires of the family. Mother and brother at the bedside, had stepped out to get some sleep. Patient's family is coming to terms with his illness, there are very reasonable in their understanding of patient's terminal situation. Patient is currently a n o code. Pending the 's acceptance of hospice. Patient will be transferred to comfort measures only once patient and his have made that decision.
--- NOTE | 2018-12-18 12:09 | P.DS ---
Providers Date of admission: 12/16/18 01:26 Expected date of discharge: 12/17/18 Attending physician: Mohan Arana Consults: 12/16/18 01:24 Consult Physician Routine Consulting Provider: Mahendra Napier Consult Reason/Comments: pain Do you want consulting provider notified?: Yes Consult Physician Routine Consulting Provider: Asad Luque Consult Reason/Comments: colon cancer Do you want consulting provider notified?: Yes Primary care physician: Asad Luque Hospital Course: Discharge diagnosis Terminal diagnosis: Metastatic colon cancer 1. Intractable pain secondary to metastatic colon cancer to the bone. Patient seen by pain service. Currently on IV Dilaudid drip and fentanyl patch. Pain service was also added IV Ativan as needed for anxiety. 2. 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 Failed multiple chemotherapy regimens per oncology. Currently on [place] chemotherapy which would be resumed after discharge. 3. Dehydration with lactic acidosis. Continue IV fluids. Lactic acid likely related to malignancy. 4. Per pulmonary service strongly suspect metastatic colon cancer to the lungs after reviewing computed tomography scan of the chest. 5. Possible community-acquired pneumonia: Currently on Zosyn 6. Severe protein calorie malnutrition continue Magic cups 7. Anemia and thrombocytopenia secondary to chemotherapy 8. Constipation continue the Movantik and lactulose Hospital course Patient is a 48-year-old male with a history of metastatic colon cancer, nephrolithiasis, prior GI bleed who presented to the hospital with complaints of intractable pain, weakness, and anorexia. On arrival to the emergency department he underwent an extensive evaluation. On his initial vital signs his heart rate was found to be 110. Initial laboratory analysis showed an anemia with hemoglobin of 12, platelets 119, lactic acid 3.9, alkaline phosphatase elevated at 321, and hypocalcemia 8.1. CT of the chest showed nonspecific bilateral groundglass opacities concerning for infectious or inflammatory process as well as progression of the thoracic metastatic disease. He was given multiple doses of pain medications in the ER and ultimately required ketamine in order to control his pain. He was admitted for further monitoring. Hie was started on IV fluids for his lactic acidosis. On the morning of 12/16 pain was well-controlled however he was slightly obtunded secondary to pain medications. Patient seen and examined at bedside. He is fairly obtunded but is able to wake up and follow simple commands. provides history. She reports that he was doing well until 2 months ago. He has had a steady decline. They have been working with pain management to control his pain issues. They have been considering putting in a pain pump outpatient. They are not ready for hospice at this point in time and wished to proceed with chemotherapy as he has only received one round of his newest chemo. 12/17/2018 patient was covered by the [facility] over the weekend. Patient still having intractable pain. The IV Dilaudid increased to 7 mg per hour. Pain service was increasing the fentanyl patch 2 every 48 hours instead of 72 hours. Patient's family refused lab work and x-rays to be completed today. Awaiting 's decision regarding possible hospice. Patient is also having low urine output. Patient is currently sleeping but arousable does state he is still in pain. Later in the afternoon on 12/17/2018 patient's did come to the decision to place her on comfort care and admit to hospice. Patient was therefore discharged and admitted to hospice services. Terminal diagnosis is metastatic colon cancer. I performed an examination of the patient and discussed their management with the physician Bmw Service Technician. I have reviewed the Physician Bmw Service Technician's notes and agree with the documented findings and plan of care Patient Condition at Discharge: Stable Plan - Discharge Summary Discharge Rx Participant: Yes New Discharge Prescriptions: No Action Sennosides [Senokot] 8.6 mg PO Q12H PRN PRN Reason: Constipation DULoxetine HCL [Cymbalta] 60 mg PO DAILY Naloxegol Oxalate [Movantik] 25 mg PO DAILY Methadone [Dolophine] 30 mg PO Q8H PRN PRN Reason: Pain Ibuprofen [Motrin] 800 mg PO TID PRN PRN Reason: Pain Esomeprazole Magnesium [NexIUM] 40 mg PO DAILY fentaNYL 100MCG/HR PATCH [Duragesic 100MCG/HR] 1 patch TRANSDERM Q72H Morphine 20mg/5ml 80 mg PO Q4H PRN PRN Reason: Pain HYDROmorphone [Dilaudid] 4 - 8 mg PO Q3H PRN PRN Reason: Pain Lubiprostone [Amitiza] 24 mcg PO BID Dexamethasone [Decadron] 2 mg PO TID oxyCODONE HCL [oxyCODONE HCL (IR)] 15 mg PO Q4H PRN PRN Reason: Pain Discharge Medication List DULoxetine HCL [Cymbalta] 60 mg PO DAILY 12/15/18 [History] Dexamethasone [Decadron] 2 mg PO TID 12/15/18 [History] Esomeprazole Magnesium [NexIUM] 40 mg PO DAILY 12/15/18 [History] HYDROmorphone [Dilaudid] 4 - 8 mg PO Q3H PRN 12/15/18 [History] Ibuprofen [Motrin] 800 mg PO TID PRN 12/15/18 [History] Lubiprostone [Amitiza] 24 mcg PO BID 12/15/18 [History] Methadone [Dolophine] 30 mg PO Q8H PRN 12/15/18 [History] Morphine 20mg/5ml 80 mg PO Q4H PRN 12/15/18 [History] Naloxegol Oxalate [Movantik] 25 mg PO DAILY 12/15/18 [History] Sennosides [Senokot] 8.6 mg PO Q12H PRN 12/15/18 [History] fentaNYL 100MCG/HR PATCH [Duragesic 100MCG/HR] 1 patch TRANSDERM Q72H 12/15/18 [History] oxyCODONE HCL [oxyCODONE HCL (IR)] 15 mg PO Q4H PRN 12/17/18 [History] Follow up Appointment(s)/Referral(s): Mhaendra Napier DO [Doctor of Osteopathic Medicine] - 1-2 days
== END 2018-12-17 20:05 | disposition hospice, inpatient (51) | DRG 947 ==
LOC: SUPCPDRO 21:47 → EC 21:47 → 3NMEDONC 12-16 01:26
PROVIDERS: ADMIT Internal Medicine; ATTEND Internal Medicine
DX: G89.3 Neoplasm related pain (acute) (chronic) (principal); E43 Unspecified severe protein-calorie malnutrition; J18.9 Pneumonia, unspecified organism; C18.7 Malignant neoplasm of sigmoid colon; C79.51 Secondary malignant neoplasm of bone; C78.7 Secondary malignant neoplasm of liver and intrahepatic bile duct; C78.00 Secondary malignant neoplasm of unspecified lung; C77.9 Secondary and unspecified malignant neoplasm of lymph node, unspecified; E87.2 Acidosis; D64.81 Anemia due to antineoplastic chemotherapy; D69.59 Other secondary thrombocytopenia; E83.51 Hypocalcemia; E86.0 Dehydration; Z51.5 Encounter for palliative care; Z66 Do not resuscitate; K59.00 Constipation, unspecified; R64 Cachexia; T45.1X5A Adverse effect of antineoplastic and immunosuppressive drugs, initial encounter; Z00.6 Encounter for examination for normal comparison and control in clinical research program; Z79.899 Other long term (current) drug therapy; Z82.49 Family history of ischemic heart disease and other diseases of the circulatory system; Z87.01 Personal history of pneumonia (recurrent); Z87.442 Personal history of urinary calculi; Z87.891 Personal history of nicotine dependence; Z90.49 Acquired absence of other specified parts of digestive tract; Z79.891 Long term (current) use of opiate analgesic; Z92.3 Personal history of irradiation; Z68.20 Body mass index [BMI] 20.0-20.9, adult; Z84.1 Family history of disorders of kidney and ureter
CPT/HCPCS: 36415; 71275; 80053; 81001; 83605; 83735; 83880; 84484; 85025; 85610; 87040; 87086; 93005; 96361; 96365; 96375; 96376; 99285

== ENCOUNTER 2018-12-17 19:48 | Inpatient (IN) | payer MEDICAID ==
[2018-12-17] MEDS ORDERED: ONDANSETRON 4 MG/2 ML VIAL IVP PRN (19:57)
[2018-12-17] MEDS ORDERED: METHADONE 10 MG TAB PO PRN (20:01)
[2018-12-17] MEDS ORDERED: SENNOSIDES 8.6 MG TAB PO PRN (20:04)
[2018-12-17] MEDS: HYDROmorphone (PF) 50 MG in SODIUM CHLORIDE 0.9% 45 ML IV SCH (21:18)
[2018-12-17] MEDS: SCOPOLAMINE 1.5MG/72HR PATCH TRANSDERM SCH (21:20)
[2018-12-17] MEDS ORDERED: IBUPROFEN 400 MG TAB PO SCH (22:00)
[2018-12-18] MEDS: LORazepam 2 MG/ML INJ IV PRN ×4 (00:16→18:36)
[2018-12-18] MEDS: HYDROmorphone (PF) 50 MG in SODIUM CHLORIDE 0.9% 45 ML IV SCH ×4 (02:46→21:09)
[2018-12-18] MEDS ORDERED: IBUPROFEN 800 MG TAB PO PRN (06:58)
--- NOTE | 2018-12-18 12:16 | P.HPIM ---
History of Present Illness H&P Date: 12/18/18 Chief Complaint: Metastatic colon cancer This is a 48-year-old male with a history of metastatic colon cancer with metastatic disease to the bone and liver and possibly the lung. Patient initially admitted to the hospital due to intractable pain. Patient seen by oncology, pain services and orthopedics. Patient required IV Dilaudid drip and IV Ativan with fentanyl patch to help control pain. Patient was still having pain. Due to patient's poor prognosis and terminal diagnosis and no improvement with multiple chemotherapy medications and current pain management. Patient's family wished to proceed with hospice and comfort care. Patient was admitted to hospice yesterday. They were able to increase the IV Dilaudid drip and given IV Ativan with all patch and scoping patch added. Patient's pain is better controlled today. Per family patient was able to eat a Popsicle. Patient resting comfortably no evidence of distress. Patient has been admitted to inpatient hospice. Review of Systems Please refer to HPI otherwise unremarkable Past Medical History Past Medical History: Cancer, GI Bleed Additional Past Medical History / Comment(s): Colon CA / Radiation Hx. kidney stones, metastatic bony lesions multiple areas of thoracic and lumbar spine and left hip and sacrum History of Any Multi-Drug Resistant Organisms: None Reported Past Surgical History: Bowel Resection, Cholecystectomy Additional Past Surgical History / Comment(s): low anterior resection and laparoscopic liver biopsy, Other surgical hx: hiatal hernia repair, lithotripsy R renal calculus, colonoscopy in past/EGD, port-a-cath removed 06-14-18 Past Anesthesia/Blood Transfusion Reactions: No Reported Reaction Past Psychological History: No Psychological Hx Reported Smoking Status: Former smoker - Past Family History Father Family Medical History: No Reported History Additional Family Medical History / Comment(s): Father is healthy and in his 70's. Mother Family Medical History: Hypertension, Renal Disease Additional Family Medical History / Comment(s): Mother has had kidney stones. She is in her 70's. Medications and Allergies Home Medications Medication Instructions Recorded Confirmed Type DULoxetine HCL [Cymbalta] 60 mg PO DAILY 12/15/18 12/17/18 History Dexamethasone [Decadron] 2 mg PO TID 12/15/18 12/17/18 History Esomeprazole Magnesium [NexIUM] 40 mg PO DAILY 12/15/18 12/17/18 History HYDROmorphone [Dilaudid] 4 - 8 mg PO Q3H PRN 12/15/18 12/17/18 History Ibuprofen [Motrin] 800 mg PO TID PRN 12/15/18 12/17/18 History Lubiprostone [Amitiza] 24 mcg PO BID 12/15/18 12/17/18 History Methadone [Dolophine] 30 mg PO Q8H PRN 12/15/18 12/17/18 History Morphine 20mg/5ml 80 mg PO Q4H PRN 12/15/18 12/17/18 History Naloxegol Oxalate [Movantik] 25 mg PO DAILY 12/15/18 12/17/18 History Sennosides [Senokot] 8.6 mg PO Q12H PRN 12/15/18 12/17/18 History fentaNYL 100MCG/HR PATCH 1 patch TRANSDERM Q72H 12/15/18 12/17/18 History [Duragesic 100MCG/HR] oxyCODONE HCL [oxyCODONE HCL (IR)] 15 mg PO Q4H PRN 12/17/18 12/17/18 History Allergies Allergy/AdvReac Type Severity Reaction Status Date / Time No Known Allergies Allergy Verified 12/17/18 21:00 Physical Exam Vitals: Vital Signs Resp 12/18/18 08:00 16 12/18/18 00:00 14 Intake and Output 12/17/18 12/18/18 12/18/18 22:59 06:59 14:59 Intake Total 10.083 53.2 29.5 Output Total 450 Balance 10.083 -396.8 29.5 Intake: Intake, IV Titration 0.083 53.2 29.5 Amount HYDROmorphone (PF) 50 mg 0.083 53.2 29.5 In Sodium Chloride 0.9% 45 ml @ 5 MG/HR 5 mls/hr IV .Q10H [facility] Rx#: [id number] Oral 10 Output: Urine 450 Other: Voiding Method Indwelling Catheter Indwelling Catheter Weight 68.039 kg Gen.: Appears older than stated age Head normocephalic Neck supple Lungs diminished no labored breathing Heart regular rate and rhythm S1-S2, no rub or gallop Abdomen is soft nontender nondistended positive bowel sounds no hepatosplenomegaly Extremities no edema Neuro patient is sleeping Assessment and Plan Assessment: 1.Advanced metastatic adenocarcinoma of the sigmoid colon with metastatic disease to the bone and liver. Also, possible metastatic disease to the lungs. Failed multiple chemotherapy regimens per oncology. 2. Intractable pain secondary to the metastatic colon cancer to the bone. Pain better controlled with the IV Dilaudid drip and fentanyl patch 3. Dehydration with lactic acidosis. Lactic acid likely related to malignancy 4. Possible community-acquired pneumonia 5. Severe protein calorie malnutrition 6. Anemia and thrombocytopenia secondary to chemotherapy Plan Patient has been admitted to inpatient hospice Continue the IV Dilaudid drip for pain control as well as final patch Continue IV Ativan as needed for agitation Continue scopolamine patch Time with Patient: Greater than 30 (Greater than 50% of the total time spent in counseling and coordination of care.I performed an examination of the patient and discussed their management with the physician Security Compliance Engineer. I have reviewed the Physician Security Compliance Engineer's notes and agree with the documented findings and plan of care)
[2018-12-19] MEDS ORDERED: LORazepam 2 MG/ML INJ ONE (02:45)
[2018-12-19] MEDS: HYDROmorphone (PF) 50 MG in SODIUM CHLORIDE 0.9% 45 ML IV SCH ×4 (04:59→19:31)
[2018-12-19] MEDS: LORazepam 2 MG/ML INJ IV PRN ×6 (06:49→22:32)
--- NOTE | 2018-12-19 10:33 | P.PN ---
Subjective Progress Note Date: 12/19/18 This is a 48-year-old male with a history of metastatic colon cancer with metastatic disease to the bone and liver and possibly the lung. Patient initially admitted to the hospital due to intractable pain. Patient seen by oncology, pain services and orthopedics. Patient required IV Dilaudid drip and IV Ativan with fentanyl patch to help control pain. Patient was still having pain. Due to patient's poor prognosis and terminal diagnosis and no improvement with multiple chemotherapy medications and current pain management. Patient's family wished to proceed with hospice and comfort care. Patient was admitted to hospice yesterday. They were able to increase the IV Dilaudid drip and given IV Ativan with all patch and scoping patch added. Patient's pain is better controlled today. Per family patient was able to eat a Popsicle. Patient resting comfortably no evidence of distress. Patient has been admitted to inpatient hospice. On 12/19/2018 patient remains general inpatient hospice. Patient's Dilaudid did have to be increased per adequate pain control. Per comfortable at this time in no distress. Family is at bedside Objective - Vital Signs Vital signs: Vital Signs Temp Pulse Resp 14 12/19/18 08:18 BP Pulse Ox Intake & Output 12/18/18 12/19/18 12/19/18 18:59 06:59 18:59 Intake Total 389.766 135.267 Output Total 450 450 Balance -60.234 -314.733 Intake: IV 64 45 HYDROmorphone (PF) 50 mg 64 45 In Sodium Chloride 0.9% 45 ml @ 5 MG/HR 5 mls/hr IV .Q10H [facility] Rx#: [id number] Intake, IV Titration 75.766 90.267 Amount HYDROmorphone (PF) 50 mg 75.766 90.267 In Sodium Chloride 0.9% 45 ml @ 5 MG/HR 5 mls/hr IV .Q10H [facility] Rx#: [id number] Oral 250 Output: Urine 450 450 Other: Voiding Method Indwelling Catheter Indwelling Catheter Indwelling Catheter - Exam Gen.: Appears older than stated age Head normocephalic Neck supple Lungs diminished no labored breathing Heart regular rate and rhythm S1-S2, no rub or gallop Abdomen is soft nontender nondistended positive bowel sounds no hepatosp lenomegaly Extremities no edema Neuro patient is sleeping Assessment and Plan Assessment: 1.Advanced metastatic adenocarcinoma of the sigmoid colon with metastatic disease to the bone and liver. Also, possible metastatic disease to the lungs. Failed multiple chemotherapy regimens per oncology. 2. Intractable pain secondary to the metastatic colon cancer to the bone. Pain better controlled with the IV Dilaudid drip and fentanyl patch 3. Dehydration with lactic acidosis. Lactic acid likely related to malignancy 4. Possible community-acquired pneumonia 5. Severe protein calorie malnutrition 6. Anemia and thrombocytopenia secondary to chemotherapy Plan Patient has been admitted to inpatient hospice Continue the IV Dilaudid drip for pain control as well as fentynl patch Continue IV Ativan as needed for agitation Continue scopolamine patch I performed an examination of the patient and discussed their management with the Nurse Practitioner. I have reviewed the Nurse Practitioner's notes and agree with the documented findings and plan of care
[2018-12-19] MEDS: HYDROmorphone (PF) 100 MG in SODIUM CHLORIDE 0.9% 90 ML IV SCH (23:41)
[2018-12-20] MEDS: LORazepam 2 MG/ML INJ IV PRN ×4 (05:43→20:45)
[2018-12-20] MEDS: HYDROmorphone (PF) 100 MG in SODIUM CHLORIDE 0.9% 90 ML IV SCH (07:05)
--- NOTE | 2018-12-20 11:59 | P.PN ---
Subjective Progress Note Date: 12/20/18 This is a 48-year-old male with a history of metastatic colon cancer with metastatic disease to the bone and liver and possibly the lung. Patient initially admitted to the hospital due to intractable pain. Patient seen by oncology, pain services and orthopedics. Patient required IV Dilaudid drip and IV Ativan with fentanyl patch to help control pain. Patient was still having pain. Due to patient's poor prognosis and terminal diagnosis and no improvement with multiple chemotherapy medications and current pain management. Patient's family wished to proceed with hospice and comfort care. Patient was admitted to hospice yesterday. They were able to increase the IV Dilaudid drip and given IV Ativan with all patch and scoping patch added. Patient's pain is better controlled today. Per family patient was able to eat a Popsicle. Patient resting comfortably no evidence of distress. Patient has been admitted to inpatient hospice. On 12/19/2018 patient remains general inpatient hospice. Patient's Dilaudid did have to be increased per adequate pain control. Per comfortable at this time in no distress. Family is at bedside 12/20/2018 patient's respirations and heart rate are elevated. It appears that pain is not controlled with the Dilaudid drip. Hospice nurse is recommending mo rphine drip. Patient will be switched over to a morphine drip and pharmacy will convert ratings. Objective - Vital Signs Vital signs: Vital Signs Temp Pulse Resp 24 12/20/18 08:00 BP Pulse Ox Intake & Output 12/19/18 12/20/18 12/20/18 18:59 06:59 18:59 Intake Total 80.800 145.467 119.791 Output Total 120 500 Balance -39.200 -354.533 119.791 Intake: IV 80 HYDROmorphone (PF) 50 mg 80 In Sodium Chloride 0.9% 45 ml @ 5 MG/HR 5 mls/hr IV .Q10H [facility] Rx#: [id number] Intake, IV Titration 80.800 65.467 119.791 Amount HYDROmorphone (PF) 100 mg 0.333 119.791 In Sodium Chloride 0.9% 90 ml @ 10 MG/HR 10 mls/ hr IV .Q10H [facility] Rx#: [id number] HYDROmorphone (PF) 50 mg 80.800 65.134 In Sodium Chloride 0.9% 45 ml @ 5 MG/HR 5 mls/hr IV .Q10H [facility] Rx#: [id number] Oral 0 Output: Urine 120 500 Other: Voiding Method Indwelling Catheter Indwelling Catheter Indwelling Catheter - Exam Gen.: Appears older than stated age Head normocephalic Neck supple Lungs increased respiratory rate Heart tachycardia Abdomen is soft nontender nondistended positive bowel sounds no hepatosplenomegaly Extremities no edema. Mottling present bilateral lower extremities Neuro patient is sleeping Assessment and Plan Assessment: 1.Advanced metastatic adenocarcinoma of the sigmoid colon with metastatic disease to the bone and liver. Also, possible metastatic disease to the lungs. Failed multiple chemotherapy regimens per oncology. 2. Intractable pain secondary to the metastatic colon cancer to the bone. Pain better controlled with the IV Dilaudid drip and fentanyl patch 3. Dehydration with lactic acidosis. Lactic acid likely related to malignancy 4. Possible community-acquired pneumonia 5. Severe protein calorie malnutrition 6. Anemia and thrombocytopenia secondary to chemotherapy Plan Patient has been admitted to inpatient hospice IV Dilaudid drip will be switched to IV morphine drip for better pain control and continue fentynl patch Continue IV Ativan as needed for agitation Continue scopolamine patch I performed an examination of the patient and discussed their management with the physician Outside Deliverer. I have reviewed the Physician Outside Deliverer's notes and agree with the documented findings and plan of care
[2018-12-20] MEDS: SODIUM CHLORIDE 0.9% IV SCH ×3 (12:13→22:29)
[2018-12-20] MEDS: MORPHINE SULFATE IV SCH ×3 (12:13→22:29)
[2018-12-20] MEDS: SCOPOLAMINE 1.5MG/72HR PATCH TRANSDERM SCH (14:15)
[2018-12-21] MEDS: LORazepam 2 MG/ML INJ IV PRN ×2 (02:13→10:59)
[2018-12-21] MEDS: MORPHINE SULFATE IV SCH ×6 (03:17→23:55)
[2018-12-21] MEDS: SODIUM CHLORIDE 0.9% IV SCH ×6 (03:17→23:55)
--- NOTE | 2018-12-21 13:08 | P.PN ---
Subjective Progress Note Date: 12/21/18 This is a 48-year-old male with a history of metastatic colon cancer with metastatic disease to the bone and liver and possibly the lung. Patient initially admitted to the hospital due to intractable pain. Patient seen by oncology, pain services and orthopedics. Patient required IV Dilaudid drip and IV Ativan with fentanyl patch to help control pain. Patient was still having pain. Due to patient's poor prognosis and terminal diagnosis and no improvement with multiple chemotherapy medications and current pain management. Patient's family wished to proceed with hospice and comfort care. Patient was admitted to hospice yesterday. They were able to increase the IV Dilaudid drip and given IV Ativan with all patch and scoping patch added. Patient's pain is better controlled today. Per family patient was able to eat a Popsicle. Patient resting comfortably no evidence of distress. Patient has been admitted to inpatient hospice. On 12/19/2018 patient remains general inpatient hospice. Patient's Dilaudid did have to be increased per adequate pain control. Per comfortable at this time in no distress. Family is at bedside 12/20/2018 patient's respirations and heart rate are elevated. It appears that pain is not controlled with the Dilaudid drip. Hospice nurse is recommending mo rphine drip. Patient will be switched over to a morphine drip and pharmacy will convert ratings. 12/21/2018 patient currently on morphine drip. Also receiving IV Ativan as needed. Patient appears comfortable in bed. Family at bedside. Questions answered. Objective - Vital Signs Vital signs: Vital Signs Temp Pulse Resp 24 12/20/18 08:00 BP Pulse Ox Intake & Output 12/20/18 12/21/18 12/21/18 18:59 06:59 18:59 Intake Total 388.191 220.000 220 Output Total 700 Balance 388.191 -480.000 220 Intake: IV 158.4 Morphine Sulfate (100 mg/ 158.4 2 ml) 500 mg In Sodium Chloride 0.9% 100 ml @ 90 MG/HR 19.8 mls/hr IV . Q5H34M [facility] Rx#:[id number] Intake, IV Titration 229.791 220.000 220 Amount HYDROmorphone (PF) 100 mg 119.791 In Sodium Chloride 0.9% 90 ml @ 10 MG/HR 10 mls/ hr IV .Q10H [facility] Rx#: [id number] Morphine Sulfate (100 mg/ 110.0 220.000 220 2 ml) 500 mg In Sodium Chloride 0.9% 100 ml @ 90 MG/HR 19.8 mls/hr IV . Q5H34M [facility] Rx#:[id number] Output: Urine 700 Uretheral ([place]) 700 Other: Voiding Method Indwelling Catheter Indwelling Catheter Indwelling Catheter - Exam Gen.: Appears older than stated age Head normocephalic Neck supple Lungs diminished bilaterally Heart regular rate and rhythm Abdomen is soft nontender nondistended positive bowel sounds no hepatosplenomegaly Extremities no edema. Mottling present bilateral lower extremities Neuro sleeping Assessment and Plan Assessment: 1.Advanced metastatic adenocarcinoma of the sigmoid colon with metastatic disease to the bone and liver. Also, possible metastatic disease to the lungs. Failed multiple chemotherapy regimens per oncology. 2. Intractable pain secondary to the metastatic colon cancer to the bone. Pain better controlled with the IV Dilaudid drip and fentanyl patch 3. Dehydration with lactic acidosis. Lactic acid likely related to malignancy 4. Possible community-acquired pneumonia 5. Severe protein calorie malnutrition 6. Anemia and thrombocytopenia secondary to chemotherapy Plan Patient has been admitted to inpatient hospice Continue IV morphine drip for better pain control and continue fentynl patch Continue IV Ativan as needed for agitation Continue scopolamine patch I performed an examination of the patient and discussed their management with the physician Press Tool Maker. I have reviewed the Physician Press Tool Maker's notes and agree with the documented findings and plan of care
[2018-12-21] MEDS ORDERED: HYDROmorphone (PF) 100 MG in SODIUM CHLORIDE 0.9% 90 ML IV SCH (16:45)
[2018-12-21] MEDS: LORazepam 2 MG/ML INJ IV SCH ×4 (18:56→23:56)
[2018-12-22 01:28] VITALS: RESP 26
[2018-12-22] MEDS: LORazepam 2 MG/ML INJ IV SCH ×2 (01:53→03:59)
[2018-12-22] MEDS: MORPHINE SULFATE IV SCH (03:14)
[2018-12-22] MEDS: SODIUM CHLORIDE 0.9% IV SCH (03:14)
== END 2018-12-22 07:13 | disposition expired | DRG 951 ==
LOC: 3NMEDONC 20:06
PROVIDERS: ADMIT Internal Medicine; ATTEND Internal Medicine
DX: Z51.5 Encounter for palliative care (principal); E43 Unspecified severe protein-calorie malnutrition; C18.7 Malignant neoplasm of sigmoid colon; C79.51 Secondary malignant neoplasm of bone; C78.00 Secondary malignant neoplasm of unspecified lung; E87.2 Acidosis; D64.81 Anemia due to antineoplastic chemotherapy; D69.59 Other secondary thrombocytopenia; E86.0 Dehydration; T45.1X5A Adverse effect of antineoplastic and immunosuppressive drugs, initial encounter; Z79.899 Other long term (current) drug therapy; Z82.49 Family history of ischemic heart disease and other diseases of the circulatory system; Z87.442 Personal history of urinary calculi; Z87.891 Personal history of nicotine dependence; Z87.19 Personal history of other diseases of the digestive system; Z90.49 Acquired absence of other specified parts of digestive tract